=== PATIENT | male | born 1990 | race Caucasian/White ===

== ENCOUNTER 2020-01-23 08:13 | Outpatient (REF) | payer MEDICAID, SELFPAY ==
[2020-01-23 08:55] LABS: Hematocrit 52.9 % (42-52); Hemoglobin 16.7 g/dl (14.0-18.0)
[2020-01-23 09:21] LABS: Cholesterol 98 mg/dL; HDL Cholesterol 45 mg/dL; LDL Cholesterol Calculated 45 mg/dl; Triglycerides 42 mg/dL
[2020-01-25 02:22] LABS: Sex Hormone Binding Globulin 8 nmol/L (10-50)
[2020-01-28 07:52] LABS: Testosterone, Free 206.6 pg/mL (35.0-155.0); Testosterone, Total 606 ng/dL (250-1100)
[2020-01-28 09:22] LABS: Testosterone-Albumin 4.2 g/dL (3.6-5.1); Testosterone-Bioavailable 392.9 ng/dL (110.0-575.0); Testosterone-SHBG 9 nmol/L (10-50); Testosterone-Total 608 ng/dL (250-1100)
[2020-01-28 17:01] LABS: Estrogen 302.8 pg/mL (60-190)
[2020-01-31 22:31] LABS: Estradiol Free 1.48 pg/mL; Estradiol, Ultrasensitive 51 pg/mL
== END 2020-01-23 08:14 | disposition home or self-care (01) ==
LOC: HO.LAB 08:13
PROVIDERS: PCP Family Medicine; Visit Provider Internal Medicine Endocrinology, Diabetes & Metabolism
DX: F64.0 Transsexualism (principal)
CPT/HCPCS: 36415; 80061; 82670; 82672; 84270; 84402; 84403; 85014; 85018

== ENCOUNTER → 2020-01-30 08:40 | Outpatient (BNVA) | payer MEDICAID, SELFPAY | PROVIDERS: PCP Family Medicine; Referring Provider Family Medicine; Visit Provider Internal Medicine Endocrinology, Diabetes & Metabolism | DX: F64.0 Transsexualism (principal); Z88.0 Allergy status to penicillin; Z90.13 Acquired absence of bilateral breasts and nipples; Z79.890 Hormone replacement therapy; Z79.899 Other long term (current) drug therapy | CPT/HCPCS: 99212 ==

== ENCOUNTER 2020-06-29 09:21 | Outpatient (REF) | payer MEDICAID, SELFPAY ==
[2020-06-29 09:50] LABS: Hematocrit 53.5 % (42-52); Hemoglobin 16.8 g/dl (14.0-18.0)
[2020-06-29 10:29] LABS: Cholesterol 98 mg/dL; HDL Cholesterol 46 mg/dL; LDL Cholesterol Calculated 45 mg/dl; Triglycerides 35 mg/dL
[2020-07-05 23:57] LABS: Estradiol Free 1.31 pg/mL; Estradiol, Ultrasensitive 50 pg/mL
[2020-07-06 11:06] LABS: Testosterone, Free 163.3 pg/mL (35.0-155.0); Testosterone, Total 633 ng/dL (250-1100)
[2020-07-06 12:16] LABS: Testosterone-Albumin 4.5 g/dL (3.6-5.1); Testosterone-Bioavailable 330.8 ng/dL (110.0-575.0); Testosterone-Free 160.9 pg/mL (46.0-224.0); Testosterone-SHBG 11 nmol/L (10-50); Testosterone-Total 558 ng/dL (250-1100)
== END 2020-06-29 09:22 | disposition home or self-care (01) ==
LOC: HO.LAB 09:21
PROVIDERS: PCP Family Medicine; Visit Provider Internal Medicine Endocrinology, Diabetes & Metabolism
DX: F64.0 Transsexualism (principal); Z79.899 Other long term (current) drug therapy
CPT/HCPCS: 36415; 80061; 82670; 82681; 84270; 84402; 84403; 85014; 85018

== ENCOUNTER → 2020-07-02 08:29 | Outpatient (BNVA) | payer MEDICAID, SELFPAY | PROVIDERS: PCP Family Medicine; Visit Provider Internal Medicine Endocrinology, Diabetes & Metabolism | DX: F64.0 Transsexualism (principal); Z79.899 Other long term (current) drug therapy | CPT/HCPCS: 99212 ==

== ENCOUNTER 2021-01-30 09:59 | Outpatient (REF) | payer MEDICAID, SELFPAY ==
[2021-01-30 10:45] LABS: Hemoglobin 16.1 g/dl (14.0-18.0)
[2021-01-30 11:19] LABS: Cholesterol 130 mg/dL; HDL Cholesterol 56 mg/dL; LDL Cholesterol Calculated 66 mg/dl; Triglycerides 42 mg/dL
[2021-01-31 18:01] LABS: Sex Hormone Binding Globulin 14 nmol/L (10-50)
[2021-02-03 16:21] LABS: Testosterone, Free 5.7 pg/mL (35.0-155.0); Testosterone, Total 30 ng/dL (250-1100)
[2021-02-04 12:51] LABS: Testosterone-Albumin 4.3 g/dL (3.6-5.1); Testosterone-Bioavailable 14.1 ng/dL (110.0-575.0); Testosterone-Free 7.1 pg/mL (46.0-224.0); Testosterone-SHBG 15 nmol/L (10-50); Testosterone-Total 35 ng/dL (250-1100)
[2021-02-13 21:07] LABS: Estradiol Free 1.29 pg/mL; Estradiol, Ultrasensitive 46 pg/mL
== END 2021-01-30 10:00 | disposition home or self-care (01) ==
LOC: HO.LAB 09:59
PROVIDERS: Visit Provider Internal Medicine Endocrinology, Diabetes & Metabolism
DX: F64.0 Transsexualism (principal); Z79.899 Other long term (current) drug therapy
CPT/HCPCS: 36415; 80061; 82670; 82681; 84270; 84402; 84403; 85014; 85018

== ENCOUNTER → 2021-02-13 10:16 | Outpatient (BNVA) | payer MEDICAID, SELFPAY | PROVIDERS: PCP Family Medicine; Visit Provider Internal Medicine | DX: F64.0 Transsexualism (principal); Z79.899 Other long term (current) drug therapy | CPT/HCPCS: 99212 ==

== ENCOUNTER 2023-01-20 16:03 | Outpatient (REF) | payer MEDICAID, SELFPAY ==
[2023-01-20 17:20] LABS: MANUAL DIFF FLAG NO
[2023-01-20 17:37] LABS: Estimated Average Glucose 108 mg/dL; Hemoglobin A1c % 5.4 % (<6.0)
[2023-01-20 17:38] LABS: Alanine Aminotransferase 10 U/L (0-40); Albumin Level 4.8 g/dL (3.5-5.0); Alkaline Phosphatase 79 U/L (39-117); Aspartate Amino Transferase 23 U/L (5-37); Bilirubin Direct 0.2 mg/dL (0.0-0.5); Bilirubin Total 0.3 mg/dL (0.0-1.0); Cholesterol 151 mg/dL (<200); HDL Cholesterol 63 mg/dL (>40); LDL Cholesterol Calculated 78 mg/dL (<100); Total Protein 8.1 g/dL (6.5-8.0); Triglycerides 50 mg/dL (<150)
[2023-01-20 17:40] LABS: Basophils Percent Auto 0.2 % (0-2); Eosinophils Percent Auto 0.3 % (0-4); Hemoglobin 16.5 g/dl (14.0-18.0); Imm Gran Abs Auto 0.04 X10*3/uL (0.00-0.03); Imm Gran Pct Auto 0.4 % (0.0-0.4); Lymphocytes Absolute Auto 2.3 X10*3/uL (1.2-4.9); Lymphocytes Percent Auto 23.9 % (20-40); Mean Corpuscular HGB Conc 31.7 g/dl (31.0-36.0); Mean Corpuscular Hemoglobin 26.3 pg (27.0-33.0); Mean Corpuscular Volume 82.8 fL (80.0-98.0); Mean Platelet Volume 12.1 fL (9.4-12.4); Monocytes Absolute Auto 0.8 X10*3/uL (0.1-1.2); Monocytes Percent Auto 8.7 % (2-11); Neutrophils Absolute Auto 6.3 x10*3/uL (2.0-8.3); Neutrophils Percent Auto 66.5 % (45-73); Platelet Count 179 X10*3/uL (160-400); Red Blood Count 6.28 X10*6/uL (4.60-5.80); Red Cell Distribution Width 13.7 % (11.0-16.0); White Blood Count 9.4 X10*3/uL (4.8-10.8)
[2023-01-21 04:20] LABS: HIV AB/AG Nonreactive (Nonreactive); HIV Num 1 0.04 S/CO (0.00-0.99); ~HepC Num1 0.42 S/CO (0.00-0.79); ~Hepatitis C Antibody Nonreactive (Nonreactive)
[2023-01-21 04:55] LABS: CT PCR NOT DETECTED (Not Detect.); NG PCR NOT DETECTED (Not Detect.)
[2023-01-24 13:44] LABS: Testosterone, Total 84 ng/dL (250-1100)
[2023-01-27 10:59] LABS: RPR Rapid Plasma Reagin NON-REACTIVE (NON-REACTIVE)
== END 2023-01-20 16:04 | disposition home or self-care (01) ==
LOC: HO.HHCL 16:03
PROVIDERS: Visit Provider Family Medicine
DX: F64.0 Transsexualism (principal); Z11.3 Encounter for screening for infections with a predominantly sexual mode of transmission
CPT/HCPCS: 0353U; 80061; 80076; 83036; 84403; 85025; 86592; 86803; 87389

== ENCOUNTER 2023-04-23 10:53 | Outpatient (REF) | payer MEDICAID, SELFPAY ==
[2023-04-23 13:03] LABS: Basophils Percent Auto 0.3 % (0-2); Eosinophils Percent Auto 0.3 % (0-4); Hematocrit 47.4 % (37.0-47.0); Hemoglobin 15.2 g/dl (12.0-16.0); Imm Gran Abs Auto 0.02 X10*3/uL (0.00-0.03); Imm Gran Pct Auto 0.3 % (0.0-0.4); Lymphocytes Absolute Auto 1.8 X10*3/uL (1.2-4.9); Lymphocytes Percent Auto 29.6 % (20-40); MANUAL DIFF FLAG NO; Mean Corpuscular HGB Conc 32.1 g/dl (31.0-35.0); Mean Corpuscular Hemoglobin 26.7 pg (27.0-33.0); Mean Corpuscular Volume 83.2 fL (80.0-98.0); Monocytes Absolute Auto 0.5 X10*3/uL (0.1-1.2); Monocytes Percent Auto 7.8 % (2-11); Neutrophils Absolute Auto 3.7 x10*3/uL (2.0-8.3); Neutrophils Percent Auto 61.7 % (45-73); Platelet Count 201 X10*3/uL (160-400); Red Cell Distribution Width 12.7 % (11.0-16.0)
== END 2023-04-23 10:54 | disposition home or self-care (01) ==
LOC: HO.HHCL 10:53
DX: Z01.818 Encounter for other preprocedural examination (principal)
CPT/HCPCS: 36415; 85025

== ENCOUNTER 2023-06-28 10:26 | Emergency (ER) | payer MEDICAID, SELFPAY ==
--- NOTE | ~2023-06-28 | CT_ITS ---
EXAMINATION: CT ABDOMEN AND PELVIS WITH CONTRAST CLINICAL INFORMATION: Abdominal pain with possible hematoma status post hysterectomy COMPARISON: None available. TECHNIQUE: Multidetector volumetric images were obtained from the superior aspect of the liver through the pubic symphysis following administration 85 mL of Omnipaque 350 intravenous contrast. Sagittal and coronal reformatted images were obtained on the technologist's workstation. Oral contrast: No This CT examination was performed using dose optimization techniques as appropriate, variously including the following: *Automated exposure control *Adjustment of mA and/or kV according to patient size (this includes techniques or standardized protocols for targeted exams where dose is matched to indication/reason for exam; i.e. extremities or head) *Use of iterative reconstruction technique DLP: 430 mGy-cm FINDINGS: LUNG BASES: The visualized lung bases are unremarkable. LIVER, GALLBLADDER, AND BILIARY TREE: The liver is enlarged measuring 18.5 cm and demonstrates decreased attenuation suggesting hepatic steatosis. No focal hepatic lesion or biliary ductal dilatation is present. The gallbladder is unremarkable with no evidence of radiopaque gallstones, gallbladder wall thickening, or obvious pericholecystic inflammatory changes. PANCREAS: Unremarkable. SPLEEN: Unremarkable. ADRENAL GLANDS: Unremarkable. KIDNEYS AND URETERS: The kidneys are normal in size, shape, and attenuation. No hydronephrosis, hydroureter, or calculi seen. No perinephric stranding. BLADDER: Air is present in the bladder. Please correlate with history of catheterization GASTROINTESTINAL TRACT: Moderate stool is present throughout the colon. There are some scattered colonic diverticula without evidence of diverticulitis. The small and large bowel are otherwise unremarkable. The appendix is unremarkable. ABDOMINAL WALL: No significant hernia is appreciated. LYMPH NODES: Normal. VASCULAR: Unremarkable. PELVIC VISCERA: Status post hysterectomy. Some small foci of air are present in the peritoneal cavity in the pelvis. No gross free intraperitoneal air is seen. A tiny amount of fluid is seen in the presacral space and cul-de-sac. No evidence of a hematoma OSSEOUS STRUCTURES: Unremarkable. CT/CT abdomen pelvis w IV con IMPRESSION: 1. No evidence of a pelvic hematoma status post hysterectomy. 2. Small foci of air are present in the peritoneal cavity in the pelvis. 3. Enlarged fatty liver. 4. Air is present in the bladder. Please correlate with history of catheterization. 5. Other incidental findings as described above. Fleischner guidelines were followed.
[2023-06-28 10:40] VITALS: BP 127/78; PULSE 84; RESP 20; TEMP 36.9; O2SAT 96; BMI 24.6
[2023-06-28 11:05] LABS: MANUAL DIFF FLAG NO
[2023-06-28 11:06] LABS: Basophils Percent Auto 0.3 % (0-2); Eosinophils Percent Auto 0.3 % (0-4); Hemoglobin 15.1 g/dl (12.0-16.0); Imm Gran Abs Auto 0.11 X10*3/uL (0.00-0.03); Imm Gran Pct Auto 1.1 % (0.0-0.4); Lymphocytes Absolute Auto 1.9 X10*3/uL (1.2-4.9); Lymphocytes Percent Auto 19.6 % (20-40); Mean Corpuscular HGB Conc 32.8 g/dl (31.0-35.0); Mean Corpuscular Hemoglobin 26.7 pg (27.0-33.0); Mean Corpuscular Volume 81.3 fL (80.0-98.0); Mean Platelet Volume 10.6 fL (9.4-12.3); Monocytes Absolute Auto 0.7 X10*3/uL (0.1-1.2); Monocytes Percent Auto 7.2 % (2-11); Neutrophils Percent Auto 71.5 % (45-73); Platelet Count 190 X10*3/uL (160-400); Red Blood Count 5.66 X10*6/uL (4.20-5.50); Red Cell Distribution Width 13.2 % (11.0-16.0); White Blood Count 9.8 X10*3/uL (4.8-10.8)
[2023-06-28 11:08] VITALS: BP 121/82; PULSE 88; RESP 16; TEMP 37.3; O2SAT 99
--- NOTE | 2023-06-28 11:12 | PC.NURSE ---
Pt presents to ED from home, pt reports they had a hysterectomy last Wednesday06/23/23 at [facility] in [place]. Pt presents today with increased bruising around surgical site on LLQ of ABD. Pt denies any pain or distention to abdomen. Pt denies any SOB, CP, fevers, cough, N/V/D. Pt is alert and oriented, breathing even and unlabored, skin WNL. Bruising noted to LLQ of ABD, no distention noted. VSS, pt in no acute distress, reports I feel totally fine .
--- NOTE | 2023-06-28 11:15 | ED_ITS ---
HPI - General Adult General Chief complaint: Skin/Abscess/Foreign Body Stated complaint: Infected surgical site? Time Seen by Provider: 06/28/23 11:15 Source: patient Mode of arrival: ambulatory Limitations: no limitations History of Present Illness HPI narrative: Patient is a 32 year old assigned female at , now male, with a history of recent hysterectomy presenting to the emergency department today with left lower abdominal bruising a few days post hysterectomy at [facility]. Patient states that he recently got a hysterectomy and is concerned about the amount of bruising present around the surgical site. Patient denies any dizziness, lightheadedness, abdominal pain, nausea, vomiting, fever, chills, blurry vision, double vision, loss of vision, chest pain, difficulty breathing, shortness of breath, back pain, night sweats, pain with urination, increased urinary frequency, increased urinary urgency, blood in his urine or stool, syncope or a near syncopal episode, recent trauma or falls, bowel incontinence, bladder incontinence, bowel retention, bladder retention, or any other complaints at this time. Onset (ago): day(s) Location: abdomen Relieving factors: none Exacerbating factors: none Associated symptoms: denies other symptoms Treatments prior to arrival: none Related Data Previous Rx's Medication Instructions Recorded insulin syringe-needle U-100 1 mL #5 ea 07/02/20 25 gauge x 5/8 (BD Insulin Syringe) syringe with needle, safety 3 mL #5 ea 07/02/20 22 gauge x 1 1/2 (BD Safety-[place] Detachable Needle) testosterone cypionate 200 mg/mL 40 mg (0.2 mL) IM QWEEK 30 days #1 02/13/21 intramuscular oil mL arnica 20 % topical tincture See Rx Instructions .Route 06/28/23 .COMPLEX #120 mL Allergies Allergy/AdvReac Type Severity Reaction Status Date / Time penicillin Allergy Unknown Unknown Uncoded 02/13/21 11:04 Review of Systems 2 Constitutional: Constitutional: Reports no additional constitutional complaints, Denies chills, Denies fever(s) and Denies night sweats Eyes: Eyes: Reports no additional eye complaints, Denies blurry vision, Denies change in vision, Denies diplopia, Denies eye discharge, Denies loss of vision and Denies eye pain ENT: Denies dizziness Cardiovascular: Cardiovascular: Reports no additional cardiovascular complaints, Denies chest pain, Denies lightheadedness, Denies Loss of Consciousness and Denies dyspnea Respiratory: Respiratory: Reports no additional respiratory complaints and Denies dyspnea Gastrointestinal: Gastrointestinal: Reports no additional gastrointestinal complaints, Denies abdominal pain, Denies melena, Denies hematochezia, Denies change in bowel habits and Denies change in stool character Comments: abdominal bruising around surgical site Genitourinary: Genitourinary: Denies hematuria, Denies urinary frequency, Denies dysuria, Denies urinary incontinence, Denies urinary hesitancy and Denies urinary urgency Musculoskeletal: Musculoskeletal: Reports no additional musculoskeletal complaints, Denies numbness and Denies tingling Neurologic: Denies dizziness, Denies loss of vision, Denies numbness and Denies tingling Psychiatric: Psychiatric: Reports no additional psychiatric complaints Endocrine: Endocrine: Reports no additional endocrine complaints Hematologic/Lymphatic: Hematologic/Lymphatic: Reports no additional hematologic/lymphatic complaints Allergic/Immunologic: Allergic/Immunologic: Reports no additional allergic/immunologic complaints PMFSH Past Medical History Attestation statement: The following information was validated with the patient. 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 Mother No problems noted. Social History Social History Alcohol intake: never Patient Tobacco Use Status: Never used Tobacco Smoked in Last 30 Days: No Use of substances other than those prescribed or required for medical reasons: No Advance Directives: No Advance Directives Information Provided: Yes Physical Exam ED Vital Signs: Vital Signs - 24 hr 06/28/23 10:40 06/28/23 11:08 Temperature 98.4 F 99.1 F Pulse Rate 84 88 Respiratory Rate 20 16 Blood Pressure 127/78 121/82 Pulse Oximetry 96 99 Oxygen Delivery Method Room Air Room Air BMI result Body Mass Index 24.6 Const General: cooperative, no acute distress, alert and awake Nutritional Appearance: well nourished Orientation/consciousness: patient oriented x3 Limitations: no limitations HENMT Head: Yes normal to inspection and Yes atraumatic Ears: hearing grossly normal bilaterally and external ears normal General nose exam: Normal external nose present, no nasal discharge noted and no epistaxis Face and sinus: Yes normal facial exam, No abrasion and No laceration Mouth: Normal oral and palatal mucosa present, no drooling and no muffled voice Eyes General: appearance normal, both eyes and all related structures Periorbital: periorbital findings normal Eyelids: Yes eyelids normal Conjunctivae: conjunctivae normal Pupils: Equal, round and reactive pupils present EOM: EOMs intact bilaterally Neck Neck: Yes normal visual inspection, Yes full ROM and Yes no lymphadenopathy Chest Chest palpation & inspection: normal inspection of the chest Resp Effort & Inspection: normal respiratory effort and able to speak in complete sentences GI Other: bruising present around the surgical sites on the abdomen in various stages of healing, no evidence of infection Neuro General: patient oriented x3 and moves all extremities Cranial nerves: Yes Equal, round and reactive pupils present Cognition (Neuro): normal cognition Motor exam (neuro): 5/5 motor strength present throughout Sensory Exam: Normal double simultaneous stimulation for sensation Coordination: [id number] test normal Extrem General: Yes normal to inspection, Yes full ROM and Yes capillary refill normal Psych Appearance: grossly normal Mental Status: mental status grossly normal Affect: normal affect Attitude: cooperative Thought process: Normal thought process present Thought content: Normal thought content present Insight: Good insight present (Psych) Medications Administered Discontinued Medications Generic Name Dose Route Start Last Admin Trade Name Freq PRN Reason Stop Dose Admin Iohexol 100 ml 06/28/23 12:54 06/28/23 12:55 Iohexol 350 Mg/Ml 100 Ml Infus..Btl IV 06/28/23 12:55 85 ml ONCE ONE Administration Medical Decision Making Medical Decision Making [facility] Narrative: Patient is a 32 year old assigned female at , now male, with a history of recent hysterectomy presenting to the emergency department today with concerns over bruising around the surgical sites. Patient's physical exam showed bruising around the laproscopic surgical sites with no erythema or concerning signs of infection. Patient's bruising appears appropriate for the recent surgical procedure. Patient's abdomen is soft, non-tender. Patient's blood work was unremarkable. Patient's abdomen/pelvis CT showed a mild amount of stool, air in bladder which is consistent with recent catheterization, and no evidence of hematoma / hemorrhage. I explained my physical exam findings as well as all test results to the patient. I answered all questions asked by the patient. Patient confirmed he was recently catheterized for the procedure but isn't presently. Patient requested a cream for bruising. I stressed the importance of the patient taking his medication as prescribed. I stressed the importance of the patient following up with his primary care provider and his surgeon. I stressed the importance of the patient returning to the emergency department immediately if his symptoms were to worsen or if he were to develop any dizziness, shortness of breath, difficulty breathing, chest pain, blurry vision, loss of vision, nausea, vomiting, abdominal pain, fever, chills, back pain, or any other complaints. Patient verbalized agreement and understanding with this treatment plan and discharge. Differential Diagnosis Differential Diagnoses: The differential diagnosis associated with the presentation includes Post-operative bruising Post-operative examination Admission/Observation Consideration of admission/observation: Escalation of care including admission/observation considered Patient would have been admitted to the hospital had his work up had any findings where hospital admission was appropriate and his clinical presentation warranted hospital admission. Lab Data [facility] Lab Attestation statement: I reviewed the patient's lab results. My interpretation of these results are in the [facility] Rationale portion of this note. 06/28/23 10:54 06/28/23 10:54 Labs: Lab Results 06/28/23 Range/Units 10:54 WBC 9.8 (4.8-10.8) X10*3/uL RBC 5.66 H (4.20-5.50) X10*6/uL Hgb 15.1 (12.0-16.0) g/dl Hct 46.0 (37.0-47.0) % MCV 81.3 (80.0-98.0) fL MCH 26.7 L (27.0-33.0) pg MCHC 32.8 (31.0-35.0) g/dl RDW 13.2 (11.0-16.0) % Plt Count 190 (160-400) X10*3/uL MPV 10.6 (9.4-12.3) fL Immature Gran % (Auto) 1.1 H (0.0-0.4) % Neut % (Auto) 71.5 (45-73) % Lymph % (Auto) 19.6 L (20-40) % [place] % (Auto) 7.2 (2-11) % Eos % (Auto) 0.3 (0-4) % Baso % (Auto) 0.3 (0-2) % Lymph # (Auto) 1.9 (1.2-4.9) X10*3/uL [place] # (Auto) 0.7 (0.1-1.2) X10*3/uL Eos # (Auto) 0.0 (0.0-0.4) X10*3/uL Baso # (Auto) 0.0 (0.0-0.2) X10*3/uL Abs Immat Gran (auto) 0.11 H (0.00-0.03) X10*3/uL Absolute Neuts (auto) 7.0 (2.0-8.3) x10*3/uL Absolute Nucleated RBC 0.000 (0.0-0.012) X10*3/uL Nucleated RBC % (auto) 0.0 (0.0-0.2) /100WBC Sodium 140 (135-145) mmol/L Potassium 4.2 (3.3-5.1) mmol/L Chloride 106 (96-108) mmol/L Carbon Dioxide 28 (22-29) mmol/L Anion Gap 10 L (12-20) BUN 9 (9-16) mg/dL Creatinine 0.75 (0.5-1.4) mg/dL Estim Creat Clear Calc 96.0 Estimated GFR > 60 Random Glucose 101 (60-115) mg/dL Calcium 9.5 (8.4-10.2) mg/dL Total Bilirubin 0.4 (0.0-1.0) mg/dL Direct Bilirubin 0.1 (0.0-0.5) mg/dL AST 17 (5-31) U/L ALT 12 (0-31) U/L Alkaline Phosphatase 69 (39-117) U/L Total Protein 7.4 (6.5-8.0) g/dL Albumin 4.2 (3.5-5.0) g/dL Independent Interpretation I performed an independent interpretation of an: CT Scan Interpretation: My interpretation is in agreement with the radiologist's impression of this imaging study. - EXAMINATION: CT ABDOMEN AND PELVIS WITH CONTRAST CLINICAL INFORMATION: Abdominal pain with possible hematoma status post hysterectomy COMPARISON: None available. TECHNIQUE: Multidetector volumetric images were obtained from the superior aspect of the liver through the pubic symphysis following administration 85 mL of Omnipaque 350 intravenous contrast. Sagittal and coronal reformatted images were obtained on the technologist's workstation. Oral contrast: No This CT examination was performed using dose optimization techniques as appropriate, variously including the following: *Automated exposure control *Adjustment of mA and/or kV according to patient size (this includes techniques or standardized protocols for targeted exams where dose is matched to indication/reason for exam; i.e. extremities or head) *Use of iterative reconstruction technique DLP: 430 mGy-cm FINDINGS: LUNG BASES: The visualized lung bases are unremarkable. LIVER, GALLBLADDER, AND BILIARY TREE: The liver is enlarged measuring 18.5 cm and demonstrates decreased attenuation suggesting hepatic steatosis. No focal hepatic lesion or biliary ductal dilatation is present. The gallbladder is unremarkable with no evidence of radiopaque gallstones, gallbladder wall thickening, or obvious pericholecystic inflammatory changes. PANCREAS: Unremarkable. SPLEEN: Unremarkable. ADRENAL GLANDS: Unremarkable. KIDNEYS AND URETERS: The kidneys are normal in size, shape, and attenuation. No hydronephrosis, hydroureter, or calculi seen. No perinephric stranding. BLADDER: Air is present in the bladder. Please correlate with history of catheterization GASTROINTESTINAL TRACT: Moderate stool is present throughout the colon. There are some scattered colonic diverticula without evidence of diverticulitis. The small and large bowel are otherwise unremarkable. The appendix is unremarkable. ABDOMINAL WALL: No significant hernia is appreciated. LYMPH NODES: Normal. VASCULAR: Unremarkable. PELVIC VISCERA: Status post hysterectomy. Some small foci of air are present in the peritoneal cavity in the pelvis. No gross free intraperitoneal air is seen. A tiny amount of fluid is seen in the presacral space and cul-de-sac. No evidence of a hematoma OSSEOUS STRUCTURES: Unremarkable. CT/CT abdomen pelvis w IV con IMPRESSION: 1. No evidence of a pelvic hematoma status post hysterectomy. 2. Small foci of air are present in the peritoneal cavity in the pelvis. 3. Enlarged fatty liver. 4. Air is present in the bladder. Please correlate with history of catheterization. 5. Other incidental findings as described above. Fleischner guidelines were followed. Dictated By: Clifton Clark MD Signed By: Electronically signed by Clifton Clark MD 06/28/23 1222 Radiology Impression Discussion of test interpretation with radiology: I have reviewed the radiologist's reading. Discharge Plan Discharge Clinical Impression: Postoperative ecchymosis Patient Disposition: Home, Self-Care Instructions: Ecchymosis (ED) Additional Instructions: Follow up with your primary care provider and your surgeon. Return to the emergency department immediately if your symptoms worsen or if you develop any dizziness, shortness of breath, difficulty breathing, chest pain, blurry vision, loss of vision, nausea, vomiting, abdominal pain, fever, chills, back pain, or any other complaints. Prescriptions: New arnica 20 % tincture See Rx Instructions .ROUTE .COMPLEX Qty: 120 0RF Rx Instructions: Apply to affected area. No Action (DME) BD Insulin Syringe 1 mL 25 gauge x 5/8 syringe See Rx Instructions .ROUTE .MEDSUPPLY Qty: 5 7RF Rx Instructions: once a week (DME) BD Safety-[facility] Detachable Needl 3 mL 22 gauge x 1 1/2 syringe See Rx Instructions .ROUTE .MEDSUPPLY Qty: 5 7RF Rx Instructions: Once a week testosterone cypionate 200 mg/mL oil 40 mg IM QWEEK 30 Days Qty: 1 2RF Referrals: Abiola Hassan MD [Primary Care Provider] - Print Language: Pashto
[2023-06-28 11:19] LABS: Anion Gap 10 (12-20); Blood Urea Nitrogen 9 mg/dL (9-16); Calcium 9.5 mg/dL (8.4-10.2); Carbon Dioxide 28 mmol/L (22-29); Chloride 106 mmol/L (96-108); Estimated Glomerular Filt Rate > 60; Glucose Random 101 mg/dL (60-115); Potassium 4.2 mmol/L (3.3-5.1); Sodium 140 mmol/L (135-145)
[2023-06-28 11:39] LABS: Alanine Aminotransferase 12 U/L (0-31); Albumin Level 4.2 g/dL (3.5-5.0); Alkaline Phosphatase 69 U/L (39-117); Aspartate Amino Transferase 17 U/L (5-31); Bilirubin Direct 0.1 mg/dL (0.0-0.5); Bilirubin Total 0.4 mg/dL (0.0-1.0); Total Protein 7.4 g/dL (6.5-8.0)
[2023-06-28] MEDS: iohexoL 350 MG/ML 100 ML INFUS..BTL IV (12:55)
[2023-06-28 15:39] VITALS: BP 128/83; PULSE 79; RESP 16; RESP 18; TEMP 36.4; O2SAT 99
== END 2023-06-28 15:40 | disposition home or self-care (01) ==
PROVIDERS: Physician Assistant Medical; Emergency Provider Emergency Medicine; PCP Family Medicine
DX: L76.32 Postprocedural hematoma of skin and subcutaneous tissue following other procedure (principal); R10.2 Pelvic and perineal pain; Y83.9 Surgical procedure, unspecified as the cause of abnormal reaction of the patient, or of later complication, without mention of misadventure at the time of the procedure; Y81.3 Surgical instruments, materials and general- and plastic-surgery devices (including sutures) associated with adverse incidents
CPT/HCPCS: 36415; 74177; 80048; 80076; 85025; 99284; Q9967

== ENCOUNTER 2023-08-06 10:51 | Outpatient (REF) | payer MEDICAID, SELFPAY ==
[2023-08-06 11:44] LABS: Hematocrit 46.1 % (37.0-47.0); Hemoglobin 14.6 g/dl (12.0-16.0); Mean Corpuscular HGB Conc 31.7 g/dl (31.0-35.0); Mean Corpuscular Volume 85.2 fL (80.0-98.0); Mean Platelet Volume 10.9 fL (9.4-12.3); Platelet Count 195 X10*3/uL (160-400); Red Blood Count 5.41 X10*6/uL (4.20-5.50); Red Cell Distribution Width 13.1 % (11.0-16.0); White Blood Count 6.7 X10*3/uL (4.8-10.8)
[2023-08-06 12:27] LABS: Alanine Aminotransferase 14 U/L (0-31); Albumin Level 4.3 g/dL (3.5-5.0); Alkaline Phosphatase 88 U/L (39-117); Aspartate Amino Transferase 22 U/L (5-31); Bilirubin Direct < 0.2 mg/dL (0.0-0.5); Bilirubin Total 0.2 mg/dL (0.0-1.0); Total Protein 7.2 g/dL (6.5-8.0)
[2023-08-11 12:34] LABS: Testosterone, Total 135 ng/dL (2-45)
== END 2023-08-06 10:52 | disposition home or self-care (01) ==
LOC: HO.HHCL 10:51
PROVIDERS: Visit Provider Family Medicine
DX: F64.0 Transsexualism (principal)
CPT/HCPCS: 36415; 80076; 84403; 85027

== ENCOUNTER 2023-11-13 19:30 | Emergency (ER) | payer MEDICAID, SELFPAY ==
--- NOTE | ~2023-11-13 | XR_ITS ---
EXAMINATION: XR ANKLE, LEFT XR FOOT, LEFT CLINICAL INFORMATION: Injury. Pain. COMPARISON: None TECHNIQUE: AP, lateral, and mortise views of the left ankle and AP, lateral, and oblique views of the left foot. FINDINGS: LEFT ANKLE: No fracture. Alignment is anatomic. Ankle mortise is symmetric. Joint spaces are maintained. No ankle joint effusion. Soft tissues are normal. LEFT FOOT: No fracture. Alignment is anatomic. No erosions. Joint spaces are maintained. Soft tissues are normal. Small enthesopathic spurs are present at the Achilles tendon insertion and plantar fascial origin on the calcaneus. XR/XR ankle LT 2V IMPRESSION: No acute fracture or malalignment in the left ankle and foot.
--- NOTE | ~2023-11-13 | XR_ITS ---
EXAMINATION: XR ANKLE, LEFT XR FOOT, LEFT CLINICAL INFORMATION: Injury. Pain. COMPARISON: None TECHNIQUE: AP, lateral, and mortise views of the left ankle and AP, lateral, and oblique views of the left foot. FINDINGS: LEFT ANKLE: No fracture. Alignment is anatomic. Ankle mortise is symmetric. Joint spaces are maintained. No ankle joint effusion. Soft tissues are normal. LEFT FOOT: No fracture. Alignment is anatomic. No erosions. Joint spaces are maintained. Soft tissues are normal. Small enthesopathic spurs are present at the Achilles tendon insertion and plantar fascial origin on the calcaneus. XR/XR foot LT 2V IMPRESSION: No acute fracture or malalignment in the left ankle and foot.
[2023-11-13 19:30] VITALS: BP 135/95; PULSE 87; RESP 18; TEMP 36.6; O2SAT 100; BMI 27.3
--- NOTE | 2023-11-13 19:35 | ED.LOWEXIN ---
HPI - Extremity Injury (Lower) General Chief Complaint: Extremity Injury, Lower Stated Complaint: left foot inj Time Seen by Provider: 11/13/23 22:31 History of Present Illness ED Provider: Jack CURRY Narrative: The patient is a 33-year-old who injured there left foot and ankle going down stairs. Patient says they twisted their foot or ankle then had a lot of pain. They came to the emergency room for evaluation of this pain. There was no other injury. Related Data Previous Rx's ?Medication ?Instructions ?Recorded insulin syringe-needle U-100 1 mL #5 ea 07/02/20 25 gauge x 5/8 (BD Insulin Syringe) syringe with needle, safety 3 mL #5 ea 07/02/20 22 gauge x 1 1/2 (BD Safety-[facility] Detachable Needle) testosterone cypionate 200 mg/mL 40 mg (0.2 mL) IM QWEEK 30 days #1 02/13/21 intramuscular oil mL arnica 20 % topical tincture See Rx Instructions .Route 06/28/23 .COMPLEX #120 mL acetaminophen 500 mg capsule 1,000 mg (2 x 500 mg) PO Q8H PRN 11/13/23 pain #20 caps ibuprofen 600 mg tablet 600 mg PO Q6H PRN pain #14 tabs 11/13/23 Allergies Allergy/AdvReac Type Severity Reaction Status Date / Time penicillin Allergy Unknown Unknown Uncoded 11/13/23 19:33 Review of Systems Review of Systems: Yes all other systems are reviewed and are negative PMFSH Past Medical History Medical History 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 Mother No problems noted. Social History Social History Alcohol intake: never Patient Tobacco Use Status: Never used Tobacco Smoked in Last 30 Days: No Use of substances other than those prescribed or required for medical reasons: No Advance Directives: No Advance Directives Information Provided: No Do you have a plan to hurt others: No Plan Patient : No Physical Exam Vital Signs: Vital Signs: Last Vital Signs Temp 98.0 F 11/13/23 23:05 Pulse 84 11/13/23 23:05 Resp 18 11/13/23 23:05 BP 120/98 H 11/13/23 23:05 Pulse Ox 99 11/13/23 23:05 O2 Del Method Room Air 11/13/23 23:05 BMI result Body Mass Index 27.3 Const: Other: The patient is awake, alert, pleasant, cooperative. The patient does not appear acutely ill. HEENT: Head: Yes normal to inspection Face and sinus: Yes normal facial exam Mouth: moist mucous membranes Eyes: General: appearance normal, both eyes and all related structures Neck: Neck: Yes normal visual inspection and Yes full ROM Resp: Effort & Inspection: normal respiratory effort Skin: Other: There is some soft tissue swelling to the dorsal midfoot. There is some swelling to the lateral malleolus. Skin is intact. Neuro: Other: Intact sensation in the feet and toes. Extrem: Other: There is some soft tissue swelling to the dorsal midfoot of the left foot and over the lateral malleolus. There is diffuse tenderness of both the dorsal midfoot and the lateral malleolus. No particular tenderness of swelling at the proximal 5th metatarsal. No gross deformity other than the soft tissue swelling of the skin. Decreased range of motion of the ankle. Course Course Course Narrative: This is a rapid medical exam. Defer additional HPI, ROS, PE to primary provider. 33 yo patient here with left ankle/foot pain after injury which occurred today. Will check x-rays -Bunny Villarreal APRN Medications Administered Discontinued Medications Generic Name Dose Route Start Last Admin Trade Name Robb PRN Reason Stop Dose Admin Acetaminophen 975 mg 11/13/23 22:45 11/13/23 22:49 Acetaminophen 325 Mg Tablet PO 11/13/23 22:46 975 mg ONCE ONE Administration Ibuprofen 600 mg 11/13/23 22:45 11/13/23 22:49 Ibuprofen 600 Mg Tablet PO 11/13/23 22:46 600 mg ONCE ONE Administration Medical Decision Making Medical Decision Making MDM Narrative: The patient is a 33-year-old who injured the ankle going down stairs. This is a twisting type injury. I think the primary injury is at the ankle of the foot may be slightly involved as well. X-rays are negative. I think this is primarily a left ankle sprain. The patient will be given an Aircast and crutches and advised to keep the foot elevated. Ibuprofen and acetaminophen. Follow-up with PCP. Discharge Plan Discharge Clinical Impression: Left ankle sprain Patient Disposition: Home, Self-Care Instructions: Ankle Sprain (ED) Additional Instructions: I do not see a fracture on your x-rays. I believe you have a sprain of your left ankle. Please use the crutches to keep weight off your left foot. You should be nonweightbearing on your left foot for approximately 3 days. After that you may put some weight on the foot but only as much as is tolerable. This is called ?weight-bearing as tolerated. ? Use the crutches to help keep weight off the foot. Stay off your feet as much as you can. Keep your left foot elevated as often as you can keep it elevated. Apply ice to the left ankle and foot for 10-15 minutes several times a day. Always keep a dry cloth between your skin and an ice bag. Please follow up in a week or 2 with your regular doctor. Return to the emergency room if significantly worse. Prescriptions: New ibuprofen 600 mg tablet 600 mg PO Q6H PRN (Reason: pain) Qty: 14 0RF acetaminophen 500 mg capsule 1,000 mg PO Q8H PRN (Reason: pain) Qty: 20 0RF No Action arnica 20 % tincture See Rx Instructions .ROUTE .COMPLEX Qty: 120 0RF Rx Instructions: Apply to affected area. (DME) BD Insulin Syringe 1 mL 25 gauge x 5/8 syringe See Rx Instructions .ROUTE .MEDSUPPLY Qty: 5 7RF Rx Instructions: once a week (DME) BD Safety-[place] Detachable Needl 3 mL 22 gauge x 1 1/2 syringe See Rx Instructions .ROUTE .MEDSUPPLY Qty: 5 7RF Rx Instructions: Once a week testosterone cypionate 200 mg/mL oil 40 mg IM QWEEK 30 Days Qty: 1 2RF Referrals: Abiola Hassan MD [Primary Care Provider] - (left ankle sprain) Interventions: ED Discharge Assessment Last Done: 11/13/23 23:05 Discharge Date/Time: 11/13/23 23:07 Print Language: Turkish
[2023-11-13] MEDS: Ibuprofen 600 MG TABLET PO (22:49)
[2023-11-13] MEDS: Acetaminophen 325 MG TABLET 975 MG PO (22:49)
[2023-11-13 22:55] VITALS: BP 120/98; PULSE 84; RESP 18; TEMP 36.7; O2SAT 99
[2023-11-13 23:05] VITALS: BP 120/98; PULSE 84; RESP 18; TEMP 36.7; O2SAT 99
== END 2023-11-13 23:07 | disposition home or self-care (01) ==
PROVIDERS: Emergency Provider Emergency Medicine; PCP Family Medicine
DX: S93.402A Sprain of unspecified ligament of left ankle, initial encounter (principal); X50.1XXA Overexertion from prolonged static or awkward postures, initial encounter; Y93.89 Activity, other specified; Y92.9 Unspecified place or not applicable; Y99.9 Unspecified external cause status
CPT/HCPCS: 73600; 73620; 99283; 99284

== ENCOUNTER 2024-03-31 08:04 | Outpatient (REF) | payer MEDICAID, SELFPAY ==
[2024-03-31 11:23] LABS: Hematocrit 45.2 % (37.0-47.0); Hemoglobin 12.9 g/dl (12.0-16.0); Mean Corpuscular HGB Conc 28.5 g/dl (31.0-35.0); Mean Corpuscular Hemoglobin 19.2 pg (27.0-33.0); Mean Corpuscular Volume 67.3 fL (80.0-98.0); Platelet Count 228 X10*3/uL (160-400); Red Blood Count 6.72 X10*6/uL (4.20-5.50); Red Cell Distribution Width 23.5 % (11.0-16.0); White Blood Count 7.2 X10*3/uL (4.8-10.8)
[2024-03-31 12:09] LABS: Alanine Aminotransferase 18 U/L (0-31); Albumin Level 4.4 g/dL (3.5-5.0); Alkaline Phosphatase 84 U/L (39-117); Aspartate Amino Transferase 32 U/L (5-31); Bilirubin Direct 0.1 mg/dL (0.0-0.5); Bilirubin Total 0.3 mg/dL (0.0-1.0); Total Protein 7.6 g/dL (6.5-8.0)
[2024-04-05 15:58] LABS: Testosterone, Total 563 ng/dL (2-45)
== END 2024-03-31 08:05 | disposition home or self-care (01) ==
LOC: HO.HHCL 08:04
PROVIDERS: Visit Provider Family Medicine
DX: F64.0 Transsexualism (principal)
CPT/HCPCS: 36415; 80076; 84403; 85027

== ENCOUNTER 2024-10-16 12:17 | Outpatient (REF) | payer MEDICAID, SELFPAY ==
--- OUTSIDE RECORDS SUMMARY | 2024-10-16 13:07 | XMS_ITS | Clinical Summary ---
Author Organization [facility] ity Address [address] [place] [address] Care Team Providers Care Outcomes Specialist Name Role Phone Abiola Hassan MD Primary Care Provider [phone] Surgical History Surgery Date Site/Laterality Comments OTHER SURGICAL HISTORY PROCEDURE: DENIES PREVIOUS SURGERY Medical History Medical History Date Comments Patient denies medical problems DX:Patient denies medical problems Family History Medical History Relation Name Comments No Known Problems Father No Known Problems Mother Relation Name Status Comments Father Alive Mother Alive Social History Tobacco Use Types Packs/Day Years Used Date Smoking Tobacco: Never Smokeless Tobacco: Never Alcohol Use Standard Drinks/Week Comments Yes 0 (1 standard drink = 0.6 oz pur e alcohol) Sex and Gender Information Value Date Recorded Sex Assigned at Not on file Legal Sex Male 3:25 PM EDT Gender Identity Not on file Sexual Orientation Not on file Obstetrics History Plan of Treatment Health Maintenance Due Date Last Done Comments DTaP,Tdap,and Td Vaccines (1 - Tdap) 2008 Hepatitis B Vaccines (1 of 3 - 19+ 3-dose series) 2008 HIV Screening 02/25/2022 Hepatitis C Screening 02/25/2022 Social Influencers of Health Screening 02/25/2022 COVID-19 Vaccine (1 - 2023-2 5 season) 2023 Depression Screening 03/29/2024 Influenza Vaccine (#1) 2024 HIB Vaccines Aged Out No longer eligi ble based on patient's age to complete this topic HPV Vaccines Aged Out No longer eligi ble based on patient's age to complete this topic Hepatitis A Vaccines Aged Out No long er eligible based on patient's age to complete this topic IPV Vaccines Aged Out No longer eligi ble based on patient's age to complete this topic MMR Vaccines Aged Out No longer eligi ble based on patient's age to complete this topic Meningococcal ACWY Vaccine Aged Out N o longer eligible based on patient's age to complete this topic Meningococcal B Vaccine Aged Out No l onger eligible based on patient's age to complete this topic Pneumococcal Vaccine: Pediat rics (0 to 5 Years) and At-Risk Patients (6 to 49 Years) Aged Out No longer eligible b ased on patient's age to complete this topic RSV Immunization Patients Un danya 20 months Aged Out No longer eligible b ased on patient's age to complete this topic Varicella Vaccines Aged Out No longer eligible based on patient's age to complete this topic Care Teams Outcomes Specialist Relationship Specialty Start Date End Date Abiola Hassan MD [address] [place] [phone] PCP - General Internal Medicine 07/22/18
--- OUTSIDE RECORDS SUMMARY | 2024-10-16 13:07 | XMS_ITS | Encounter Summary ---
Author Organization [employer] Address [address] [place] [address] 7 [place] [address] Care Team Providers Care Professor Of Anthropology Name Role Phone Abiola Hassan MD Primary Care Provider +1- [phone] Hellen Walker OD Unavailable [phone] Encounter Details Date Type Department Care Team (Latest Contact Info) Description 12/13/2018 Abstract [facility] Dental, Provider, DDS Social History Tobacco Use Types Packs/Day Years Used Date Smoking Tobacco: Never Assessed Comments Unknown Sex and Gender Information Value Date Recorded Sex Assigned at Female 02/01/2023 11:12 AM EST Legal Sex Female 7:48 AM EDT Gender Identity Transgender Male 01/26/2022 10:3 4 AM EDT Sexual Orientation Something else 06/11/2022 10 :44 AM EDT documented as of this encounter Plan of Treatment Upcoming Encounters Date Type Department Care Team ( st Contact Info) Description 01/30/2025 3:00 PM EST Office Visit [facility] OPTOMETRY [address] [place] [address] Hellen Walker OD [address] [place] [address] documented as of this encounter Visit Diagnoses Not on filedocumented in this encounter Care Teams Professor Of Anthropology Relationship Specialty Start Date End Date Abiola Hassan MD [address] [place] [address] PCP - General Family Medicine 02/28/18 Hellen Walker OD [address] [place] [address] Optometry 05/29/24 Keith Kirkpatrick MD, MS Plastic and Reconstructive Surgery [address] [place] [address] 05/29/24 documented as of this encounter
[2024-10-16 13:13] LABS: Hematocrit 44.4 % (37.0-47.0); Hemoglobin 13.9 g/dl (12.0-16.0); Mean Corpuscular HGB Conc 31.3 g/dl (31.0-35.0); Mean Corpuscular Hemoglobin 24.3 pg (27.0-33.0); Mean Corpuscular Volume 77.5 fL (80.0-98.0); NRBC Abs Auto 0.000 X10*3/uL (0.0-0.012); NRBC Pct Auto 0.0 /100WBC (0.0-0.2); Platelet Count 172 X10*3/uL (160-400); Red Blood Count 5.73 X10*6/uL (4.20-5.50); White Blood Count 5.4 X10*3/uL (4.8-10.8)
[2024-10-16 13:36] LABS: Alanine Aminotransferase 23 U/L (0-31); Albumin Level 4.6 g/dL (3.5-5.0); Alkaline Phosphatase 111 U/L (39-117); Aspartate Amino Transferase 34 U/L (5-31); Cholesterol 151 mg/dL (<200); HDL Cholesterol 61 mg/dL (>40); Total Protein 7.2 g/dL (6.5-8.0); Triglycerides 81 mg/dL (<150)
== END 2024-10-16 12:18 | disposition home or self-care (01) ==
LOC: HO.HHCL 12:17
PROVIDERS: PCP Family Medicine; Visit Provider Family Medicine
DX: F64.0 Transsexualism (principal)
CPT/HCPCS: 36415; 80061; 80076; 84403; 85027

== ENCOUNTER 2025-02-02 08:37 | Outpatient (REF) | payer MEDICAID, SELFPAY ==
--- OUTSIDE RECORDS SUMMARY | 2025-01-30 15:00 | XMS_ITS | Encounter Summary ---
Author Organization [employer] Address [address] [facility] 7t [place] [address] Care Team Providers Care Redye Hand Name Role Phone [place], Abiola VEGA Primary Care Provider [phone]- [phone] Hellen Walker OD Unavailable Reason for Visit * Reason Comments Pathological myopia Encounter Details Date Type Department Care Team ([facility] st Contact Info) Description 01/30/2025 3:00 PM EST Office Visit [facility] OPTOMETRY [address] [place] [address] Hellen Walker, OD [address] [place] [address] Myopia of both eyes (Primary Dx); Posterior staphyloma, bilateral Social History Tobacco Use Types Packs/Day Years Used Date Smoking Tobacco: Never Smokeless Tobacco: Never Alcohol Answer Date Recorded How often do you have a drink containing alcohol ? 2 03/03/2024 Average Number of Drinks Not on file 024 Frequency of Binge Drinking Not on file 08/2023 Depression Answer Date Recorded Patient Health Questionnaire-9 Score 20 03/03/2024 Patient Health Questionnaire-9 Score 20 03/03/2024 Last PHQ-9: Questionnaire Data Not on file 1 05/04/2023 Housing Stability Answer Date Recorded What is your housing situation today? I have magaly anderson 07/05/[address] you li ve. Do you have problems with any of the following? None of the above 07/05/2024 Food Insecurity Answer Date Recorded Within the past 12 months, y ou worried that your food would run out before you got money to buy more: Never True 07/05/2024 Within the past 12 months,th e food you bought just didn't last and you didn't have enough money to get more: Never True 11/2024 Transportation Answer Date Recorded In the past 12 months, has l ack of transportation kept you from medical appts, meetings, work or from getting things needed for daily living? No 03/03/2024 Utilities Answer Date Recorded In the past 12 months, has t he electric, gas, oil or water company threatened to shut off services in your home? No 07/05/2024 Depression Answer Date Recorded Patient Health Questionnaire-2 Score 4 03/03/2024 Internet Access Answer Date Recorded Internet Access Q1 Yes 03/03/2024 Internet Access Q2 Not on file 03/03/2024 Comments Unknown Sex and Gender Information Value Date Recorded Sex Assigned at Female 02/01/2023 11:12 AM EST Legal Sex Female 7:48 AM EDT Gender Identity Transgender Male 01/26/2022 10:3 4 AM EDT Sexual Orientation Something else 06/11/2022 10 :44 AM EDT documented as of this encounter Plan of Treatment Upcoming Encounters Date Type Department Care Team (Late st Contact Info) Description 02/05/2025 10:45 AM EST Office Visit [facility] MEDICINE [address] [place] [address] Abiola Hassan MD [address] [place] [address] 04/09/2025 11:30 AM EST Office Visit [facility] OPTOMETRY [address] [place] [address] Aaron, Hellen, OD [address] [place] [address] documented as of this encounter Visit Diagnoses Diagnosis Myopia of both eyes- Primary Posterior staphyloma, 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
--- OUTSIDE RECORDS SUMMARY | 2025-02-02 09:10 | XMS_ITS | Encounter Summary ---
Author Organization [facility] Address [address] [place] [phone] Phone Care Team Providers Care Operations Executive Name Role Phone Mo, Abiola Garcia MD Primary Care Provi danya Encounter Details Date Type Department Care Team (Late st Contact Info) Description 04/26/2023 Procedure Pass [facility] Periop 1st floor [address] [place] [address] Social History Tobacco Use Types Packs/Day Years Used Date Smoking Tobacco: Never Smokeless Tobacco: Never Alcohol Use Standard Drinks/Week Comments Not Currently 0 (1 standard drink = 0.6 oz pur e alcohol) 1-2/week Education Answer Date Recorded Are you interested in more education? Not on jerald e 07/24/2022 Are you concerned about learning? Not on file 07/24/2022 No 07/24/2022 No 07/24/2022 Digital Access Answer Date Recorded No 08/25/2022 No 08/25/2022 Reliable internet access at home? Not on file 08/25/2022 Device with a working camera? Not on file Comments No Sex and Gender Information Value Date Recorded Sex Assigned at Female 12/24/2020 1:05 PM EDT Legal Sex Female 10:22 AM EST Gender Identity Male 12/24/2020 1:05 PM EDT Sexual Orientation Asexual 11/16/2023 2: 31 PM EDT Sexual Orientation Something else 11/16/2023 2: 31 PM EDT documented as of this encounter Plan of Treatment Upcoming Encounters Date Type Department Care Team (Latest Contact Info) Description 02/06/2025 1:00 PM EST Office Visit [facility] Plastic Surgery [address] [address] Keith Kirkpatrick MD, MS [address] [place] [address] [email or web address] 02/12/2025 Procedure Pass [facility] Periop [address] [place] [address] 02/12/2025 7:30 AM EST Hospital Encounter [facility] Periop [address] [place] [address] Keith Kirkpatrick MD, MS [address] [place] [address] [email or web address] 02/12/2025 7:30 AM EST - 02/12/2025 3:32 PM EST Surgery [facility] Periop [address] [place] [address] Keith Kirkpatrick MD, MS [address] [place] [address] [email or web address] Perineal phalloplasty, stage 2 with Urethral Lengthening, Perineal Closure, Clitoral burying, Scrotoplasty, and Glansplasty 02/20/2025 12:30 PM EST Office Visit [facility] Plastic Surgery [address] [place] [address] Darian Kessler PA-C [address] [place] [address] [email or web address] 03/06/2025 3:00 PM EST Office Visit [facility] Plastic Surgery [address] [place] [address] Keith Kirkpatrick MD, MS [address] [place] [address] [email or web address] 03/16/2025 11:00 AM EST Telemedicine [facility] Plastic Surgery [address] [place] [address] Darian Kessler PA-C [address] [place] [address] [email or web address] 03/23/2025 2:30 PM EST Office Visit [facility] Plastic Surgery [address] [place] [address] Darian Kessler PA-C [address] [place] [address] [email or web address] 07/10/2025 1:15 PM EDT Office Visit [facility] Plastic Surgery [address] [place] [address] Keith Kirkpatrick MD, MS [address] [place] [address] [email or web address] Scheduled Procedures Name Priority Associated Diagnoses Date/Ti me PHALLOPLASTY PERINEAL Gender dysphoria in adult 02/12/2025 7:30 AM EST VAGINECTOMY FOR GENDER AFFIRMATION Gender dysphoria in adult 02/12/2025 7:30 AM EST documented as of this encounter Visit Diagnoses Not on filedocumented in this encounter Additional Health Concerns Assessment Noted Time PHQ-2 Depression Total Score: 0 02/03/20 7:53 AM EST documented as of this encounter Care Teams Operations Executive Relationship Specialty Start Date End Date Abiola Hassan MD [address] [place] [address] PCP - General Family Medicine 12/24/20 documented as of this encounter Additional Source Comments The information contained in this document represents components of the legal health record. It is not the complete legal health record.[facility]
--- OUTSIDE RECORDS SUMMARY | 2025-02-02 09:10 | XMS_ITS | Encounter Summary ---
Author Organization [facility] Address [address] [place] [address] Phone Care Team Providers Care Keysmith Name Role Phone Mo, Abiola Garcia MD Primary Care Provi [facility] Encounter Details Date Type Department Care Team (Late st Contact Info) Description 02/07/2023 Prep for Surgery [facility] Urogynecology [address] [place] [address] [place] [address] Nicolas Carlson MD, MPH [address] director of [place] [address] [email or web address] Social History Tobacco Use Types Packs/Day Years [...] PM EDT Sexual Orientation Something else 11/16/2023 2 :31 PM EDT documented as of this encounter Plan of Treatment Upcoming Encounters Date Type Department Care Team (Latest Contact Info) Description 02/06/2025 1:00 PM EST Office Visit [facility] Plastic Surgery [address] [address] Keith Kirkpatrick MD, MS [address] [place] [address] [email or web address] 02/12/2025 Procedure Pass [facility] Periop [address] [place] [address] 02/12/2025 7:30 AM EST Hospital Encounter [facility] Periop [address] [place] [address] Keith Kirkpatrick MD, MS [address] [place] [address] [email or web address] 02/12/2025 7:30 AM EST - 02/12/2025 3:32 PM EST Surgery [facility] Periop [address] [place] [address] Keith Kirkpatrick MD, MS [address] [place] [address] [email or web address] Perineal phalloplasty, stage 2 with Urethral Lengthening, Perineal Closure, Clitoral burying, Scrotoplasty, and Glansplasty 02/20/2025 12:30 PM EST Office Visit [facility] Plastic Surgery [address] [place] [address] Darian Kessler PA-C [address] [place] [address] [email or web address] 03/06/2025 3:00 PM EST Office Visit [facility] Plastic Surgery [address] [place] [address] Keith Kirkpatrick MD, MS [address] [place] [address] [email or web address] 03/16/2025 11:00 AM EST Telemedicine [facility] Plastic Surgery [address] [place] [address] Darian Kessler PA-C [address] [place] [address] [email or web address] 03/23/2025 2:30 PM EST Office Visit [facility] Plastic Surgery [address] [place] [address] Darian Kessler PA-C [address] [place] [address] [email or web address] 07/10/2025 1:15 PM EDT Office Visit [facility] Plastic Surgery [address] [place] [address] Keith Kirkpatrick MD, MS [address] [place] [address] [email or web address] Scheduled Procedures Name Priority Associated Diagnoses [...] documented as of this encounter Care Teams Keysmith Relationship Specialty Start Date End Date Mcclain, Abiola Garcia MD [address] [place] [address] PCP - General Family Medicine 12/24/20 documented as of this encounter Additional Source Comments The information contained in this document represents components of the legal health record. It is not the complete legal health record.[facility]
--- OUTSIDE RECORDS SUMMARY | 2025-02-02 09:10 | XMS_ITS | Encounter Summary ---
Author Organization [facility] Address [address] [place] [address] Phone Care Team Providers Care Internal Specialist Name Role Phone Mo, Abiola Garcia MD Primary Care Pro[facility] Encounter Details Date Type Department Care Team (Late st Contact Info) Description 12/09/2023 Procedure Pass [facility] Periop [address] [place] [address] Social History Tobacco Use Types Packs/Day Years [...] with a working camera? Not on file Intimate Partner Violence Answer Date R ecorded Are you denied basic needs s uch as food, clothing, or medical care? No 12/09/2023 In the past 12 months have y ou been in a relationship with a person who hurts, threatens, or tries to control you? No 12/09/2023 Are you denied basic needs s uch as food, clothing, or medical care? No 12/09/2023 In the past 12 months have y ou been in a relationship with a person who hurts, threatens, or tries to control you? No 12/09/2023 Comments No Sex and Gender Information Value Date Recorded Sex Assigned at Female 12/24/2020 1:05 PM EDT Legal Sex Female 10:22 AM EST Gender Identity Male 12/24/2020 1:05 PM EDT Sexual Orientation Asexual 11/16/2023 2: 31 PM EDT Sexual Orientation Something else 11/16/2023 2: 31 PM EDT documented as of this encounter Functional Status * Calculated C-SSRS Risk Score (Lifetime/Recent) Answer Date of Assessment Author No Risk Indicated 12/09/2023 9:54 PM EDT Terri Lange RN * Pierce Suicide Severity Rating Scale (Screener/Recent Self-Report) Question Answer Date of Assessment Author 1. Wish to be (Past 1 Month) No 12/09/2023 9:54 PM EDT Terri Lagne RN 2. Non-Specific Active Suici kolton Thoughts (Past 1 Month) No 12/09/2023 9:54 PM EDT Willa Lange RN 6. Suicidal Behavior (Lifetime) No 9:54 PM EDT Terri Lange RN documented as of this encounter Plan of Treatment Upcoming Encounters Date Type Department Care Team (Latest Contact Info) Description 02/06/2025 1:00 PM EST Office Visit [facility] Plastic Surgery [address] [address] Keith Kirkpatrick MD, MS [address] [place] [address] [email or web address] 02/12/2025 Procedure Pass [facility] Periop [address] [place] [address] 02/12/2025 7:30 AM EST Hospital Encounter [facility] Periop [address] [place] [address] Keith Kirkpatrick MD, MS [address] [place] [address] [email or web address] 02/12/2025 7:30 AM EST - 02/12/2025 3:32 PM EST Surgery [facility] Periop [address] [place] [address] Keith Kirkpatrick MD, MS [address] [place] [address] [email or web address] Perineal phalloplasty, stage 2 with Urethral Lengthening, Perineal Closure, Clitoral burying, Scrotoplasty, and Glansplasty 02/20/2025 12:30 PM EST Office Visit [facility] Plastic Surgery [address] [place] [address] Darian Kessler PA-C [address] [place] [address] [email or web address] 03/06/2025 3:00 PM EST Office Visit [facility] Plastic Surgery [address] [address] Keith Kirkpatrick MD, MS [address] [place] [address] [email or web address] 03/16/2025 11:00 AM EST Telemedicine [facility] Plastic Surgery [address] [address] Darian Kessler PA-C [address] [place] [address] [email or web address] 03/23/2025 2:30 PM EST Office Visit [facility] Plastic Surgery [address] [place] [address] Darian Kessler PA-C [address] [place] [address] [email or web address] 07/10/2025 1:15 PM EDT Office Visit [facility] Plastic Surgery [address] [address] Keith Kirkpatrick MD, MS [address] [place] [address] [email or web address] Scheduled Procedures Name Priority Associated Diagnoses Date/Ti me PHALLOPLASTY PERINEAL Gender dysphoria in adult 02/12/2025 7:30 AM EST VAGINECTOMY FOR GENDER AFFIRMATION Gender dysphoria in adult 02/12/2025 7:30 AM EST documented as of this encounter Visit Diagnoses Not on filedocumented in this encounter Additional Health Concerns Assessment Noted Time PHQ-2 Depression Total Score: 0 02/03/20 23 7:53 AM EST documented as of this encounter Care Teams Internal Specialist Relationship Specialty Start Date End Date Abiola Hassan MD [address] [place] [address] PCP - General Family Medicine 12/24/20 documented as of this encounter Additional Source Comments The information contained in this document represents components of the legal health record. It is not the complete legal health record.[facility]
--- OUTSIDE RECORDS SUMMARY | 2025-02-02 09:10 | XMS_ITS | Encounter Summary ---
Author Organization [facility] Address [address] [place] [address] Phone Care Team Providers Care Siebel Crm Developer Name Role Phone Mo, Abiola Garcia MD Primary Care [facility] Encounter Details Date Type Department Care Team (Late st Contact Info) Description 02/07/2023 Prep for Surgery [facility] Urogynecology [address] [place] [address] Nicolas Carlson MD, MPH [address] social science analyst [place] [address] [email or web address] Social History Tobacco Use Types Packs/Day [...] Description 02/06/2025 1:00 PM EST Office Visit [facility] Plastic Surgery [address] [address] Keith Kirkpatrick MD, MS 75 [place] [address] [email or web address] 02/12/2025 Procedure Pass [facility] Periop [address] [place] [address] 02/12/2025 7:30 AM EST Hospital Encounter [facility] Periop [address] [place] [address] Keith Kirkpatrick MD, MS 75 [place] [address] [email or web address] 02/12/2025 7:30 AM EST - 02/12/2025 3:32 PM EST Surgery [facility] Periop [address] [place] [address] Keith Kirkpatrick MD, MS 75 [place] [address] [email or web address] Perineal phalloplasty, stage 2 with Urethral Lengthening, Perineal Closure, Clitoral burying, Scrotoplasty, and Glansplasty 02/20/2025 12:30 PM EST Office Visit [facility] Plastic Surgery [address] [place] [address] Darian Kessler PA-C [address] [place] [address] [email or web address] 03/06/2025 3:00 PM EST Office Visit [facility] Plastic Surgery [address] [place] [address] Keith Kirkpatrick MD, MS 75 [place] [address] [email or web address] 03/16/2025 11:00 AM EST Telemedicine [facility] Plastic Surgery [address] [place] [address] Darian Kessler PA-C [address] [place] [address] [email or web address] 03/23/2025 2:30 PM EST Office Visit [facility] Plastic Surgery [address] [place] [address] Darian Kessler PA-C [address] [place] [address] [email or web address] 07/10/2025 1:15 PM EDT Office Visit [facility] Plastic Surgery [address] [place] [address] Keith Kirkpatrick MD, MS 75 [place] [address] [email or web address] Scheduled Procedures Name Priority Associated Diagnoses [...] documented as of this encounter Care Teams Siebel Crm Developer Relationship Specialty Start Date End Date Perkins, Abiola Garcia MD 230 [place] [address] PCP - General Family Medicine 12/24/20 documented as of this encounter Additional Source Comments The information contained in this document represents components of the legal health record. It is not the complete legal health record.[facility]
--- OUTSIDE RECORDS SUMMARY | 2025-02-02 09:10 | XMS_ITS | Encounter Summary ---
Author Organization [employer] [facility] Address [address] [place] [address] Phone Care Team Providers Care Organ Pipe Maker Metal Name Role Phone Mo, Abiola Garcia MD Primary Care [facility] Encounter Details Date Type Department Care Team (Late st Contact Info) Description 05/25/2024 Procedure Pass [facility] Periop 75 [place] [address] Social History Tobacco Use Types Packs/Day Years [...] as food, clothing, or medical care? No 05/23/2024 In the past 12 months have y ou been in a relationship with a person who hurts, threatens, or tries to control you? No 05/23/2024 Are you denied basic needs s uch as food, clothing, or medical care? No 05/23/2024 In the past 12 months have y ou been in a relationship with a person who hurts, threatens, or tries to control you? No 05/23/2024 Comments No Sex and Gender Information Value [...] Description 02/06/2025 1:00 PM EST Office Visit [facility] Plastic Surgery [address] [address] Keith Kirkpatrick MD, MS 75 [place] [address] [email or web address] 02/12/2025 Procedure Pass [facility] Periop 75 [place] [address] 02/12/2025 7:30 AM EST Hospital Encounter [facility] Periop 75 [place] [address] Keith Kirkpatrick MD, MS 75 [place] [address] [email or web address] 02/12/2025 7:30 AM EST - 02/12/2025 3:32 PM EST Surgery [facility] Periop 75 [place] [address] Keith Kirkpatrick MD, MS 75 [place] [address] [email or web address] ERAS Perineal phalloplasty, stage 2 with Urethral Lengthening, Perineal Closure, Clitoral burying, Scrotoplasty, and Glansplasty 02/20/2025 12:30 PM EST Office Visit [facility] Plastic Surgery [address] [place] [address] Darian Kessler PA-C [address] [place] [address] [email or web address] 03/06/2025 3:00 PM EST Office Visit [facility] Plastic Surgery [address] [place] [address] Keith Kirkpatrick MD, MS 75 [place] [address] [email or web address] 03/16/2025 11:00 AM EST Telemedicine [facility] Plastic Surgery [address] [place] [address] Darian Kessler PA-C [address] [place] [address] [email or web address] 03/23/2025 2:30 PM EST Office Visit [facility] Plastic Surgery [address] [place] [address] Darian Kessler PA-C [address] [place] [address] [email or web address] 07/10/2025 1:15 PM EDT Office Visit [facility] Plastic Surgery [address] [place] [address] Keith Kirkpatrick MD, MS 75 [place] [address] [email or web address] Scheduled Procedures Name Priority Associated Diagnoses [...] documented as of this encounter Care Teams Organ Pipe Maker Metal Relationship Specialty Start Date End Date Abiola Hassan MD [address] [place] [address] PCP - General Family Medicine 12/24/20 documented as of this encounter Additional Source Comments The information contained in this document represents components of the legal health record. It is not the complete legal health record.[facility]
--- OUTSIDE RECORDS SUMMARY | 2025-02-02 09:10 | XMS_ITS | Encounter Summary ---
Author Organization [employer] [facility] Address [address] [place] [address] Phone Care Team Providers Care Rn Pediatric Icu Name Role Phone Mo, Abiola Garcia MD Primary Care [facility] Encounter Details Date Type Department Care Team (Late st Contact Info) Description 04/29/2023 Procedure Pass [facility] Periop 75 [place] [address] Social History Tobacco Use Types Packs/Day Years [...] Description 02/06/2025 1:00 PM EST Office Visit [facility] Plastic Surgery [address] [address] Keith Kirkpatrick MD, MS 75 [place] [address] [email or web address] 02/12/2025 Procedure Pass [facility] Periop [address] [place] [address] 02/12/2025 7:30 AM EST Hospital Encounter [facility] Periop [address] [place] [address] Keith Kirkpatrick MD, MS 75 [place] [address] [email or web address] 02/12/2025 7:30 AM EST - 02/12/2025 3:32 PM EST Surgery [facility] Periop [address] [place] [address] Keith Kirkpatrick MD, MS 75 [place] [address] [email or web address] Perineal phalloplasty, stage 2 with Urethral Lengthening, Perineal Closure, Clitoral burying, Scrotoplasty, and Glansplasty 02/20/2025 12:30 PM EST Office Visit [facility] Plastic Surgery [address] [place] [address] Darian Kessler PA-C 75 [place] [address] [email or web address] 03/06/2025 3:00 PM EST Office Visit [facility] Plastic Surgery [address] [place] [address] Keith Kirkpatrick MD, MS 75 [place] [address] [email or web address] 03/16/2025 11:00 AM EST Telemedicine [facility] Plastic Surgery [address] [place] [address] Darian Kessler PA-C [address] [place] [address] [email or web address] 03/23/2025 2:30 PM EST Office Visit [facility] Plastic Surgery [address] [place] [address] Darian Kessler PA-C [address] [place] [address] [email or web address] 07/10/2025 1:15 PM EDT Office Visit [facility] Plastic Surgery [address] [place] [address] Keith Kirkpatrick MD, MS 75 [place] [address] [email or web address] Scheduled Procedures Name Priority Associated Diagnoses [...] documented as of this encounter Care Teams Rn Pediatric Icu Relationship Specialty Start Date End Date Abiola Hassan MD [address] [place] [address] PCP - General Family Medicine 12/24/20 documented as of this encounter Additional Source Comments The information contained in this document represents components of the legal health record. It is not the complete legal health record.[facility]
--- OUTSIDE RECORDS SUMMARY | 2025-02-02 09:10 | XMS_ITS | Encounter Summary ---
Author Organization [facility] Address [address] [place] [address] Phone Care Team Providers Care Amusement Machine Mechanic Name Role Phone Mo, Abiola Garcia MD Primary Care [facility] Encounter Details Date Type Department Care Team (Late st Contact Info) Description 07/20/2022 Telephone [facility] [address] [place] [address] Elvia Pemberton MD, MPH [address] [place] [address] [email or web address] Social History Tobacco Use Types Packs/Day Years Used Date Smoking Tobacco: Never Smokeless Tobacco: Never Alcohol Use Standard Drinks/Week Comments Yes 0 (1 standard drink = 0.6 oz pur e alcohol) 1-2/week Education Answer Date Recorded Are you interested in more education? Not on jerald e 07/24/2022 Are you concerned about learning? Not on file 07/24/2022 No 07/24/2022 No 07/24/2022 Comments No Sex and Gender Information Value [...] Description 02/06/2025 1:00 PM EST Office Visit [facility] Plastic Surgery [address] [place] [address] Keith Kirkpatrick MD, MS 75 [place] [address] [email or web address] 02/12/2025 Procedure Pass [facility] Periop [address] [place] [address] 02/12/2025 7:30 AM EST Hospital Encounter [facility] Periop [address] [place] [address] Keith Kirkpatrick MD, MS 75 [place] [address] [email or web address] 02/12/2025 7:30 AM EST - 02/12/2025 3:32 PM EST Surgery [facility] Periop [address] [place] [address] Keith Kirkpatrick MD, MS 75 [place] [address] [email or web address] Perineal phalloplasty, stage 2 with Urethral Lengthening, Perineal Closure, Clitoral burying, Scrotoplasty, and Glansplasty 02/20/2025 12:30 PM EST Office Visit [facility] Plastic Surgery [address] [place] [address] Darian Kessler PA-C [address] [place] [address] [email or web address] 03/06/2025 3:00 PM EST Office Visit [facility] Plastic Surgery [address] [place] [address] Keith Kirkpatrick MD, MS 75 [place] [address] [email or web address] 03/16/2025 11:00 AM EST Telemedicine [facility] Plastic Surgery [address] [place] [address] Darian Kessler PA-C [address] [place] [address] [email or web address] 03/23/2025 2:30 PM EST Office Visit [facility] Plastic Surgery [address] [place] [address] Darian Kessler PA-C [address] [place] [address] [email or web address] 07/10/2025 1:15 PM EDT Office Visit [facility] Plastic Surgery [address] [place] [address] Keith Kirkpatrick MD, MS 75 [place] [address] [email or web address] Scheduled Procedures Name Priority Associated Diagnoses Date/Ti me PHALLOPLASTY PERINEAL Gender dysphoria in adult 02/12/2025 7:30 AM EST VAGINECTOMY FOR GENDER AFFIRMATION Gender dysphoria in adult 02/12/2025 7:30 AM EST documented as of this encounter Visit Diagnoses Not on filedocumented in this encounter Care Teams Amusement Machine Mechanic Relationship Specialty Start Date End Date Abiola Hassan MD [address] [place] [address] PCP - General Family Medicine 12/24/20 documented as of this encounter Additional Source Comments The information contained in this document represents components of the legal health record. It is not the complete legal health record.[facility]
--- OUTSIDE RECORDS SUMMARY | 2025-02-02 09:11 | XMS_ITS | Encounter Summary ---
Author Organization [employer] Address 75 [facility] 7t [place] [address] Care Team Providers Care Winding Inspector Name Role Phone Abiola Hassan MD Primary Care Provider [phone]- [phone] Hellen Walker OD Unavailable [phone] Encounter Details Date Type Department Care Team ([facility] st Contact Info) Description 01/31/2025 Telephone [facility] MEDICINE 230 [place], [place] [phone] Abiola Hassan MD 230 [place], [place] [phone] Social History Tobacco Use Types Packs/Day Years [...] AM EDT documented as of this encounter Miscellaneous Notes * Telephone Encounter - Abiola Hassan MD - 01/31/2025 8:46 AM EST Please ask Jame to get fasting labs 3 or 4 days after his shot before his apt on 02/05/25. He can use [facility] if he needs to go on a Wednesday or can use our labs. Thank you. documented in this encounter Plan of Treatment Upcoming Encounters Date Type Department Care Team (Late st Contact Info) Description 02/05/2025 10:45 AM EST Office Visit [facility] MEDICINE [address] [place] [address] Abiola Hassan MD 230 [place] [address] 04/09/2025 11:30 AM EST Office Visit [facility] OPTOMETRY [address] [place] [address] Hellen Walker, EFRAÍN [address] [place] [address] documented as of this encounter Visit Diagnoses Not on filedocumented in this encounter Additional Health Concerns Assessment Noted Time PHQ-9 Depression Total Score: 20 024 10:36 AM EST documented as of this encounter Care Teams Winding Inspector Relationship Specialty Start Date End Date Abiola Hassan MD [address] [place] [address] PCP - General Family Medicine 02/28/18 Hellen Walker OD [address] [place] [address] Optometry 05/29/24 Keith Kirkpatrick MD, MS Plastic and Reconstructive Surgery [address] [place] [address] 05/29/24 documented as of this encounter
--- OUTSIDE RECORDS SUMMARY | 2025-02-02 09:11 | XMS_ITS | Encounter Summary ---
Author Organization [employer] Address 75 [facility] 7t [place] [address] Care Team Providers Care Sat Act Instructor Name Role Phone Abiola Hassan MD Primary Care Provider [phone] Hellen Walker OD Unavailable Encounter Details Date Type Department Care Team (Late st Contact Info) Description 01/29/2023 Orders Only [facility] MEDICINE 230 [place], [place] [phone] Abiola Hassan MD 230 [place] [address] Gender dysphoria in adult (Primary Dx) Social History Tobacco Use Types Packs/Day Years Used Date Smoking Tobacco: Never Smokeless Tobacco: Never Depression Answer Date Recorded Patient Health Questionnaire-9 Score 0 01/20/2023 Patient Health Questionnaire-9 Score 0 01/20/2023 Last PHQ-9: Questionnaire Data Not on file 1 Housing Stability Answer Date Recorded What is your housing situation today? I have housing today, but I am worried about losing housing in the future 01/20/[address] you li ve. Do you have problems with any of the following? None of the above 01/20/2023 Food Insecurity Answer Date Recorded Within the past 12 months, y ou worried that your food would run out before you got money to buy more: Never True 01/20/2023 Within the past 12 months,th e food you bought just didn't last and you didn't have enough money to get more: Never True Transportation Answer Date Recorded In the past 12 months, has l ack of transportation kept you from medical appts, meetings, work or from getting things needed for daily living? No 01/20/2023 Utilities Answer Date Recorded In the past 12 months, has t he electric, gas, oil or water company threatened to shut off services in your home? No 01/20/2023 Depression Answer Date Recorded Patient Health Questionnaire-2 Score 0 01/20/2023 Comments Unknown Sex and Gender Information Value [...] Description 02/05/2025 10:45 AM EST Office Visit [facility] MEDICINE [address] [place] [address] Abiola Hassan MD [address] [place] [address] 04/09/2025 11:30 AM EST Office Visit [facility] OPTOMETRY [address] [place] [address] Hellen Walker, OD 230 [place] [address] documented as of this encounter Visit Diagnoses Diagnosis Gender dysphoria in adult- Primary Gender dysphoria in adult- Primary documented in this encounter Additional Health Concerns Assessment Noted Time PHQ-9 Depression Total Score: 0 01/21/20 23 3:13 PM EDT documented as of this encounter Care Teams Sat Act Instructor Relationship Specialty Start Date End Date Abiola Hassan MD [address] [place] [address] PCP - General Family Medicine 02/28/18 Hellen Walker, OD [address] [place] [address] Optometry 05/29/24 Keith Kirkpatrick MD, MS Plastic and Reconstructive Surgery [address] [place] [address] 05/29/24 documented as of this encounter
--- OUTSIDE RECORDS SUMMARY | 2025-02-02 09:11 | XMS_ITS | Encounter Summary ---
Author Organization [employer] Address 75 [facility] 7t [place] [address] Care Team Providers Care Typewriter Mechanic Name Role Phone Abiola Hassan MD Primary Care Provider [phone]- [phone] Hellen Walker OD Unavailable Reason for Visit * Reason Onset Date Comments Med Refill 04/26/2023 Encounter Details Date Type Department Care Team (Late st Contact Info) Description 04/26/[address] [facility] MEDICINE [address] [place], [place] [phone] Abiola Hassan MD [address] [place] [address] Gender dysphoria in adult; Gender dysphoria Social History Tobacco Use Types Packs/Day Years [...] Description 02/05/2025 10:45 AM EST Office Visit [facility] MEDICINE [address] [place] [address] Abiola Hassan MD [address] [place] [address] 04/09/2025 11:30 AM EST Office Visit [facility] OPTOMETRY [address] [place] [address] Hellen Walker, EFRAÍN [address] [place] [address] documented as of this encounter Visit Diagnoses Diagnosis Gender dysphoria in adult Gender dysphoria Gender dysphoria in adult- Primary documented in this encounter Additional Health Concerns Assessment Noted Time PHQ-9 Depression Total Score: 0 01/21/20 23 3:13 PM EDT documented as of this encounter Care Teams Typewriter Mechanic Relationship Specialty Start Date End Date Abiola Hassan MD [address] [place] [address] PCP - General Family Medicine 02/28/18 Hellen Walker, EFRAÍN [address] [place] [address] Optometry 05/29/24 Keith Kirkpatrick MD, MS Plastic and Reconstructive Surgery [address] [place] [address] 05/29/24 documented as of this encounter
--- OUTSIDE RECORDS SUMMARY | 2025-02-02 09:11 | XMS_ITS | Encounter Summary ---
Author Organization [employer] Address 75 [facility] 7t [place] [address] Care Team Providers Care Package Checker Name Role Phone Abiola Hassan MD Primary Care Provider [phone]- [phone] Hellen Walker OD Unavailable Reason for Visit * Reason Onset Date Comments Med Refill 05/26/2023 Encounter Details Date Type Department Care Team (Late st Contact Info) Description 05/26/2023 Refill [facility] MEDICINE 230 [place], [place] [phone] Abiola Hassan MD 230 [place] [address] Gender dysphoria in adult Social History Tobacco Use Types Packs/Day Years [...] Description 02/05/2025 10:45 AM EST Office Visit [facility] MEDICINE [address] [place] [address] Abiola Hassan MD [address] [place] [address] 04/09/2025 11:30 AM EST Office Visit [facility] OPTOMETRY [address] [place] [address] Hellen Walker, OD [address] [place] [address] documented as of this encounter Visit Diagnoses Diagnosis Gender dysphoria in adult Gender dysphoria in adult- Primary documented in this encounter Additional Health Concerns Assessment Noted Time PHQ-9 Depression Total Score: 0 01/21/20 23 3:13 PM EDT documented as of this encounter Care Teams Package Checker Relationship Specialty Start Date End Date Abiola Hassan MD [address] [place] [address] PCP - General Family Medicine 02/28/18 Hellen Walker, OD [address] [place] [address] Optometry 05/29/24 Keith Kirkpatrick MD, MS Plastic and Reconstructive Surgery [address] [place] [address] 05/29/24 documented as of this encounter
--- OUTSIDE RECORDS SUMMARY | 2025-02-02 09:11 | XMS_ITS | Encounter Summary ---
Author Organization [employer] Address 75 [facility] 7t [place] [address] Care Team Providers Care Breaker Hand Name Role Phone Abiola Hassan MD Primary Care Provider +1- [phone] Hellen Walker OD Unavailable [phone] Encounter Details Date Type Department Care Team (Latest Contact Info) Description 01/30/2025 Travel Social History Tobacco Use Types Packs/Day Years [...] Visit [facility] MEDICINE [address] [place] [address] Abiola Hassan MD [address] [place] [address] 04/09/2025 11:30 AM EST Office Visit [facility] OPTOMETRY [address] [place] [address] Hellen Walker, OD 230 [place] [address] documented as of this encounter Visit Diagnoses Not on filedocumented in this encounter Additional Health Concerns Assessment Noted Time PHQ-9 Depression Total Score: 20 024 10:36 AM EST documented as of this encounter Care Teams Breaker Hand Relationship Specialty Start Date End Date Abiola Hassan MD [address] [place] [address] PCP - General Family Medicine 02/28/18 Hellen Walker, OD [address] [place] [address] Optometry 05/29/24 Keith Kirkpatrick MD, MS Plastic and Reconstructive Surgery [address] [place] [address] 05/29/24 documented as of this encounter
--- OUTSIDE RECORDS SUMMARY | 2025-02-02 09:11 | XMS_ITS | Encounter Summary ---
Author Organization [employer] Address [address] [place] [address] 7 [place] [address] Care Team Providers Care Materials Intern Name Role Phone Abiola Hassan MD Primary Care Provider Hellen Walker OD Unavailable Encounter Details Date Type Department Care Team (Latest Contact Info) Description 12/13/2018 Abstract [facility] Dental, Provider, DDS Social History Tobacco [...] Description 02/05/2025 10:45 AM EST Office Visit [facility] [address] [place] [address] Abiola Hassan MD [address] [place] [address] 04/09/2025 11:30 AM EST Office Visit [facility] [address] [place], [place] [phone] Hellen Walker, OD 230 [place] [address] documented as of this encounter Visit Diagnoses Not on filedocumented in this encounter Care Teams Materials Intern Relationship Specialty Start Date End Date Abiola Hassan MD [address] [place] [address] PCP - General Family Medicine 02/28/18 Hellen Walker OD [address] [place] [phone] Optometry 05/29/24 Keith Kirkpatrick MD, MS Plastic and Reconstructive Surgery [address] [place] [phone] 05/29/24 documented as of this encounter
--- OUTSIDE RECORDS SUMMARY | 2025-02-02 09:11 | XMS_ITS | Encounter Summary ---
Author Organization [employer] Address [address] [facility] 7t [place] [address] Care Team Providers Care Receiving Inspector Name Role Phone [place], Abiola VEGA Primary Care Provider [phone] Hellen Walker OD Unavailable Reason for Visit * Reason Onset Date Comments Med Refill 08/28/2023 Encounter Details Date Type Department Care Team (Late st Contact Info) Description 08/28/2023 Refill [facility] 230 [place], [place] [phone] Ally Ceja MD 230 [place] [address] Gender dysphoria Social History Tobacco Use Types [...] Description 02/05/2025 10:45 AM EST Office Visit [facility] [address] [place] [address] Abiola Hassan MD [address] [place] [address] 04/09/2025 11:30 AM EST Office Visit [facility] OPTOM[facility] [address] [place] [address] Hellen Walker, OD [address] [place] [address] documented as of this encounter Visit Diagnoses Diagnosis Gender dysphoria Gender dysphoria in adult- Primary documented in this encounter Additional Health Concerns Assessment Noted Time PHQ-9 Depression Total Score: 0 01/21/20 23 3:13 PM EDT documented as of this encounter Care Teams Receiving Inspector Relationship Specialty Start Date End Date Abiola Hassan MD [address] [place] [address] PCP - General Family Medicine 02/28/18 Hellen Walker, OD [address] [place] [phone] Optometry 05/29/24 Keith Kirkpatrick MD, MS Plastic and Reconstructive Surgery [address] [place] [address] 05/29/24 documented as of this encounter
--- OUTSIDE RECORDS SUMMARY | 2025-02-02 09:11 | XMS_ITS | Encounter Summary ---
Author Organization [employer] Address 75 [facility] 7t [place] [address] Care Team Providers Care Solar Systems Designer Name Role Phone [place], Abiola VEGA Primary Care Provider [phone]- [phone] Hellen Walker OD Unavailable [phone] Reason for Visit * Reason Onset Date Comments Med Refill 09/22/2023 Encounter Details Date Type Department Care Team (Late st Contact Info) Description 09/22/2023 Refill [facility] MEDICINE 230 [place], [place] [phone] Ally Ceja MD 230 [place] [address] Gender dysphoria in adult Social History Tobacco [...] Description 02/05/2025 10:45 AM EST Office Visit [facility] MEDICINE [address] [place] [address] Abiola Hassan MD [address] [place] [address] 04/09/2025 11:30 AM EST Office Visit [facility] OPTOMETRY [address] [place] [address] Hellen Wlaker, OD [address] [place] [address] documented as of this encounter Visit Diagnoses Diagnosis Gender dysphoria in adult Gender dysphoria in adult- Primary documented in this encounter Additional Health Concerns Assessment Noted Time PHQ-9 Depression Total Score: 0 01/21/20 23 3:13 PM EDT documented as of this encounter Care Teams Solar Systems Designer Relationship Specialty Start Date End Date Abiola Hassan MD [address] [place] [phone] PCP - General Family Medicine 02/28/18 Hellen Walker, OD [address] [place] [address] Optometry 05/29/24 Keith Kirkpatrick MD, MS Plastic and Reconstructive Surgery [address] [place] [address] 05/29/24 documented as of this encounter
--- OUTSIDE RECORDS SUMMARY | 2025-02-02 09:11 | XMS_ITS | Clinical Summary ---
Author Organization [employer] Address [address] [place] [address] 7t [place] [address] Care Team Providers Care Stretcher Helper Name Role Phone Abiola Hassan MD Primary Care Provider [phone] Kosta Walkern OD Unavailable [phone] Allergies Active Allergy Reactions Criticality Noted Date Comments Penicillin G Unknown 11/13/2023 Medications Needle, Disp, (B-D BLUNT FILL NEEDLE) 18G X 1-1/2 miscIndications :Gender dysphoria in adult USE 1 EVERY 14 DAYS 25 each 3 5 Active insulin syringe-needle U-100 (B-D INS SYR ULTRAFINE 1CC/30G) 30G X 1/2 1 ML miscIndications :Gender dysphoria in adult USE DIRECTED TO INJECT TESTOSTERONE ONE DAY A WEEK 10 each 3 5 Active testosterone cypionate (Depo-Testoster one) 200 MG/ML injectionIndica tions:Gender dysphoria in adult INJECT 0.4 ML EVERY 2 WEEKS 2 mL 3 5 Active Active Problems Problem Noted Date Diagnosed Date Other specified health status 01/13/2023 Overview (07/12/2024): -next physical exam due after 07/12/25 -eye care facilitated by [facility] -dental home is [facility] Assessment & Plan (07/12/2024 11:44 AM EDT): -next physical exam due after 07/12/25 -eye care facilitated by [facility] -dental home is [facility] Assessment & Plan (03/03/2024 9:34 PM EST): -next physical exam due after 02/20/2025 -eye care facilitated by [facility] -dental home is [facility] Assessment & Plan (01/20/2023 3:29 PM EDT): -next physical exam due after 01/21/2024 -eye care facilitated by [facility] -dental home is [facility] Pathologic myopia, 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 Ehsan Tavares. -S/p laparoscopic total hysterectomy with bilateral salpingo-oophorectomy, vaginectomy and cystoscopy on 06/23/[address] Nicolas Carlson. -underwent stage 1 phalloplasty - left RFFF with urethral lengthening and immediate skin grafting by Dr. Keith Kirkpatrick on 12/09/23, stage 2 is scheduled for July 13, 2024 -changed procedure date, underwent revision of urethral meatus w/STSG by Dr. Keith Kirkpatrick on 05/25/24 Lab Results Component Value Date TOTALBILIRUB 0.3 10/16/2024 AST 34 (H) 10/16/2024 ALT 23 10/16/2024 ALT 8 02/06/2022 HGB 13.9 10/16/2024 HGB 17.7 (H) 02/06/2022 HCT 44.4 10/16/2024 TRIG 81 10/16/2024 LDLCHOLCAL 74 10/16/2024 HDL 61 10/16/2024 CHOL 151 10/16/2024 Assessment & Plan (07/12/2024 11:43 AM EDT): -continue Testosterone CYPIONATE 200 mg/ml is at 0.4 ml/ 80mg subcutaneously EVERY TWO WEEKS -goal testosterone 350-700 -S/p chest reconstruction surgery 08/[address] Ehsan Tavares. -S/p laparoscopic total hysterectomy with bilateral salpingo-oophorectomy, vaginectomy and cystoscopy on 06/23/[address] Nicolas Carlson. -underwent stage 1 phalloplasty - left RFFF with urethral lengthening and immediate skin grafting by Dr. Keith Kirkpatrick on 12/09/23, stage 2 is scheduled for July 13, 2024 -changed procedure date, underwent revision of urethral meatus w/STSG by Dr. Keith Kirkpatrick on 05/25/24 -labs due 3 months Assessment & Plan (03/03/2024 9:33 PM EST): Pt was followed by Dr. Stone , last visit 02/13/2021 but she has left the area. He will continue care with PCP. -continue Testosterone CYPIONATE 200 mg/ml is at 0.4 ml/ 80mg IM EVERY TWO WEEKS -goal testosterone 350-700 -Cholesterol profile at goal 01/2021 -LFT is normal 01/2021 -S/p chest reconstruction surgery 08/[address] Ehsan Tavares. - S/p laparoscopic total hysterectomy with bilateral salpingo-oophorectomy, vaginectomy and cystoscopy on 06/23/[address] Nicolas Carlson. - underwent stage 1 phalloplasty - left RFFF with urethral lengthening and immediate skin grafting by Dr. Keith Kirkpatrick on 12/09/23, stage 2 is scheduled for July 13, 2024 Assessment & Plan (07/02/2023 9:43 AM EDT): Pt was followed by Dr. Stone , last visit 02/13/2021 but she has left the area. He will continue care with PCP. -continue Testosterone CYPIONATE 200 mg/ml is at 0.2 ml/ 40mg IM weekly. Labs 01/2021 showed low Testosterone but he was off for a few months due to unit receptionist left the area. Labs 04/22/2019 showed total testosterone 380 ( goal 350-700) -Cholesterol profile at goal 01/2021 -LFT is normal 01/2021 -S/p chest reconstruction surgery 08/[address] Ehsan Tavares. -Pt desires phalloplasty and has intake in [place] for June 2021, he is aware of the [facility] resource on line. - S/p laparoscopic total hysterectomy with bilateral salpingo-oophorectomy, vaginectomy and cystoscopy on 06/23/23 by Nicolas Ko. - pt had hemorrhage post-op day 8 and was seen at [facility], Ct scan and labs were done (requested by me 07/02/23), sutures intact on exam, no current bleeding, vital signs stable and asymptomatic, pt will contact surgeon for follow up, advised ER if bleeding returns, check Testosterone in Televisit in one month. Assessment & Plan (01/20/2023 2:59 PM EDT): Pt was followed by Dr. Stone , last visit 02/13/2021 but she has left the area. He will continue care with PCP. -continue Testosterone CYPIONATE 200 mg/ml is at 0.2 ml/ 40mg IM weekly. Labs 01/2021 showed low Testosterone but he was off for a few months due to unit receptionist left the area. Labs 04/22/2019 showed total testosterone 380 ( goal 350-700) -Cholesterol profile at goal 01/2021 -LFT is normal 01/2021 -S/p chest reconstruction surgery 08/[address] Ehsan Tavares. -Pt desires phalloplasty and has intake in [place] for June 2021, he is aware of the [facility] resource on line. Chronic low back pain 12/17/2017 01/13/2023 Depression 03/08/2015 01/13/2023 Overview (03/03/2024): Now followed at [facility]. No suicidial or homacidial ideation. Assessment & Plan (03/03/2024 9:33 PM EST): Now followed at [facility]. No suicidial or homacidial ideation. Resolved Problems Problem Noted Date Diagnosed Date Resolved Date Left ankle sprain 11/16/2023 07/12/2024 Overview (11/16/2023): -11/16/23 XR/XR foot LT 2V IMPRESSION: No acute fracture or malalignment in the left ankle and foot. Physical exam 01/20/2023 03/03/2024 Overview (01/20/2023): -Normal growth and development. -Anticipatory guidance discussed. -Preventative care / harm reduction discussed. Assessment & Plan (01/20/2023 2:58 PM EDT): -Normal growth and development. -Anticipatory guidance discussed. -Preventative care / harm reduction discussed. Myopia of both eyes 05/15/2021 04/07/19 Gender dysphoria 05/15/2021 01/13/2023 01/13/2023 Encounters Date Type Department Care Team Description 01/31/2025 Telephone [facility] [address] [place] [address] Abiola Hassan MD 01/30/2025 3:00 PM EST Office Visit [facility] OPTOMETRY [address] [place] [address] Aaron, Hellen, OD Myopia of both eyes (Primary Dx); Posterior staphyloma, bilateral 01/30/2025 Travel 12/25/2024 Refill [facility] [address] [place] [address] Abiola Hassan MD Gender dysphoria in adult 11/07/2024 Telephone [facility] [address] [place] [address] Abiola Hassan MD December Recalls 11/07/2024 Travel from Last 3 Months Immunizations Immunization Administration Dates Next Due Hep B, adult 03/03/2024,07/02/2023,01/20/2023 Influenza injectable quadriv alent preservative free 01/20/2023,02/06/2022,05/15/2021,2018,05/31/2017 Influenza, seasonal, injecta ble, preservative free 03/03/2024 PPD Test 07/14/2016,03/11/2015 Pfizer Covid-19 Vaccine 12+ 03/03/2024, Tdap 12/19/2018,05/09/2015 Family History Medical History Relation Name Comments Cancer Neg Hx Diabetes Neg Hx Hypertension Neg Hx Social History Tobacco Use Types Packs/Day Years Used Date Smoking Tobacco: Never Smokeless Tobacco: Never Tobacco Cessation:Counseling Given: Not Answered Alcohol Answer Date Recorded How often do [...] Q2 Not on file 03/03/2024 Comments Unknown Intention Date Recorded No desire to become (finding) 0 07/12/2024 Sex and Gender Information Value Date Recorded Sex Assigned at Female 02/01/2023 11:12 AM EST Legal Sex Female 7:48 AM EDT Gender Identity Transgender Male 01/26/2022 10:3 4 AM EDT Sexual Orientation Something else 06/11/2022 10 :44 AM EDT Last Filed Vital Signs Vital Sign Reading Time Taken Comments Blood Pressure 138/89 07/12/2024 10:34 AM EDT Pulse 77 07/12/2024 10:34 AM EDT Temperature 36.4 C (97.5 F) 03/03/2024 10:04 AM EST Respiratory Rate 16 07/12/2024 10:34 AM EDT Oxygen Saturation 98% 03/03/2024 10:04 AM EST Inhaled Oxygen Concentration - - Weight 81.2 kg (179 lb) 07/12/2024 10:34 AM EDT Height 165.1 cm (5' 5 ) 07/12/2024 10:34 AM EDT Body Mass Index 29.79 07/12/2024 10:34 AM EDT Plan of Treatment Upcoming Encounters Date Type Department Care Team (Late st Contact Info) Description 02/05/2025 10:45 AM EST Office Visit [facility] [address] [place] [address] Abiola Hassan MD [address] [place] [address] 04/09/2025 11:30 AM EST Office Visit [facility] OPTOMETRY [address] [place] [address] AaronHellen misrha, OD [address] [place] [address] Health Maintenance Due Date Last Done Comments HPV Vaccines (1 - 3-dose series) 2004 Depression Monitoring 09/01/2024 03/03/2024, 024 Influenza Vaccine (#1) 2024 , 01/20/2023, 02/06/2022, Additional history exists Alcohol/Substance Use Screening 03/03/2025 03/03/2024 SDOH Screening 07/05/2025 07/05/2024 Disability Screening 07/12/2025 07/12/2024 Family Planning (PISQ) 07/12/2025 07/12/2024 Tobacco Screening 07/12/2025 07/12/2024 DTaP/Tdap/Td Vaccines (3 - Td or Tdap) 12/19/2028 12/19/2018, 05/09/2015 Lipid Panel 10/16/2029 10/16/2024, 12/28, 02/06/2022 Zoster Vaccines (1 of 2) 10/15/2039 RSV Patients and Patients Aged 60 years or older (1 - 1-dose 75+ series) 2064 Cervical Cancer Screening Discontinued HPV/Cotest Discontinued 02/28/2021, 02/28/2021 Pap Smear Discontinued 02/28/2021, 02/28/2021 HIV Screening Completed 01/20/2023, 02/06/2022 Hepatitis C Screening Completed 01/20/2023, 022 COVID-19 Vaccine Completed 03/03/2024, , 08/19/2020, Additional history exists Hepatitis B Vaccines Completed 03/03/2024, 07/02/2023, 01/20/2023 HIB Vaccines Aged Out No longer eligi [...] patient's age to complete this topic Meningococcal Vaccine Aged Out No shelly bandar eligible based on patient's age to complete this topic Pneumococcal Vaccine: Pediatrics (0 to 5 Years) and At-Risk Patients (6 to 49) Years Aged Out No longer eligible based on patient's age to complete this topic RSV under 20 months Aged Out No longe r eligible based on patient's age to complete this topic Rotavirus Vaccines Aged Out No longer eligible based on patient's age to complete this topic Procedures Procedure Name Priority Date/Time Associated Diagnosis Comments LIPID PANEL, STANDARD Routine 10/16/2024 12:27 PM EDT Gender dysphoria in adult HEPATITIS C AB W/REFL TO HCV RNA, QN, PCR Routine 01/20/2023 4:08 PM EDT Routine screening for STI (sexually transmitted infection) HIV ANTIBODY/ANTIGEN ([place] DPH) Routine 01/20/2023 4:08 PM EDT HPV HIGH RISK PCR Routine 02/28/2021 12: 00 AM EST PAP SMEAR Routine 02/28/2021 12:00 AM EST from Last 3 Months or Most Recently Relevant to Health Maintenance Results * Lipid Panel, Standard (10/16/2024 12:27 PM EDT) Triglycerides 81 <150 mg/dL [facility] Comment:Desirable Triglyceri de: less than 150 mg/dLBorderline High Triglyceride 150-199 mg/dLHigh Triglyceride: 200-499 mg/dLVery High Triglyceride: greater than or equal to 5OO mg/dL Cholesterol 151 <200 mg/dL [facility] Comment:Desirable Cholestero l: less than 200 mg/dLBorderline High Cholesterol: 200-239 mg/dLHigh Cholesterol: greater than 239 mg/dL LDL Cholesterol Calculated 74 <100 mg/dL [facility] Comment:Desirable LDL: less than 100 mg/dLNear Optimal/Above Optimal LDL: 110- 129 mg/dLBorderline High LDL: 130-159 mg/dLHigh LDL: 160-189 mg/dLVery High LDL: greater than or equal to 190 mg/dL HDL Cholesterol 61 >40 mg/dL [facility] Comment:Desirable HDL: great er than 40 mg/dL Note: This HDL assay may give artificially low results in patients with liver disease. Blood Venous blood specimen / Unknown 10/16/2024 12:27 PM EDT 10/16/2024 12:57 PM EDT Abiola Hassan MD LAB BLOOD ORDERABLES Final Result [facility] [address] [place] [phone] * HIV Ab/Ag (TIFFANY ROCHA) (01/20/2023 4:08 PM EDT) HIV AB/AG Nonreactive Nonreactive [facility] Comment:HIV-1 p24 Ag and/or HIV-1/HIV-2 Ab not detected.A test result that is nonreactive does not exclude thepossibility of exposure to or infection with HIV-1 and/orHIV-2. Nonreactive results in this assay for individualswith prior exposure to HIV-1 and/or HIV-2 may be due toantigen and antibody levels that are below the limit ofdetection of this assay.The [employer] HIV Ag/Ab Combo assay result andsupplemental assay results should be interpreted inconjunction with the patient's clinical presentation,history and other laboratory results. If the results areinconsistent with clinical evidence, additional testing issuggested to confirm the result. 01/20/2023 4:08 PM EDT 01/20/2023 5:19 PM EDT Abiola Hassan MD LAB BLOOD ORDERABLES Final Result Performing Organization Address [facility]/ZIP Co de Phone Number [facility] [address] [place] [phone] * Hepatitis C Antibody with Reflex to HCV, RNA, Quantitative, Real-Time PCR (01/20/2023 4:08 PM EDT) Hepatitis C Antibody Nonreactive Nonreactive [facility] Comment:Antibodies to HCV no t detected; does not exclude early acuteHCV infection. Blood Venous blood specimen / Unknown 01/20/2023 4:08 PM EDT 01/20/2023 5:19 PM EDT Abiola Hassan MD LAB BLOOD ORDERABLES Final Result Performing Organization Address City/[facility]/ZIP Co de Phone Number [facility] [address] [place] [phone] * HPV High Risk PCR (02/28/2021 12:00 AM EST) Swab Abiola Hassan MD LAB MICROBIOLOGY - GENERAL ORDERABLES Final Result Performing Organization Address [facility] Co de Phone Number [facility] [address] [place] [phone] * Pap Smear (02/28/2021 12:00 AM EST) Swab us Abiola Hassan MD LAB CYTOLOGY ORDERABLES Fi nal Result [facility] [address] [place] [phone] from Last 3 Months or Most Recently Relevant to Health Maintenance Insurance [facility] C3 HSN FULL Advance Directives Documents on File Type Date Recorded Patient Search Engine Optimization Specialist Expl anation Advance Directives and Living Will 03/03/2024 Health Care Proxy 03/03/24 Care Teams Stretcher Helper Relationship Specialty Start Date End Date Abiola Hassan MD [address] [place] [address] PCP - General Family Medicine 02/28/18 Hellen Walker OD [address] [place] [address] Optometry 05/29/24 Keith Kirkpatrick MD, MS Plastic and Reconstructive Surgery [address] [place] [address] 05/29/24
--- OUTSIDE RECORDS SUMMARY | 2025-02-02 09:11 | XMS_ITS | Encounter Summary ---
Author Organization [facility] Address [address] [place] [phone] Phone Care Team Providers Care Internal Corrosion Specialist Name Role Phone Mo, Abiola Garcia MD Primary Care Provi danya Encounter Details Date Type Department Care Team (Late st Contact Info) Description 06/23/[address] [facility] Periop [address] [place] [address] Social History Tobacco Use Types Packs/Day Years [...] Description 02/06/2025 1:00 PM EST Office Visit [facility] Plastic Surgery [address] [address] Keith Kirkpatrick MD, MS [address] [place] [address] [email or web address] 02/12/2025 Procedure Pass [facility] Periop [address] [place] [phone] 02/12/2025 7:30 AM EST Hospital Encounter [facility] Periop [address] [place] [address] Keith Kirkpatrick MD, MS [address] [place] [address] [email or web address] 02/12/2025 7:30 AM EST - 02/12/2025 3:32 PM EST Surgery [facility] Periop [address] [place] [address] Keith Kirkpatrick MD, MS [address] [place] [address] [email or web address] Perineal phalloplasty, stage 2 with Urethral Lengthening, Perineal Closure, Clitoral burying, Scrotoplasty, and Glansplasty 02/20/2025 12:30 PM EST Office Visit [facility] Plastic Surgery [address] [place] [phone] Darian Kessler PA-C [address] [place] [address] [email or web address] 03/06/2025 3:00 PM EST Office Visit [facility] Plastic Surgery [address] [place] [phone] Keith Kirkpatrick MD, MS [address] [place] [address] [email or web address] 03/16/2025 11:00 AM EST Telemedicine [facility] Plastic Surgery [address] [place] [address] Darian Kessler PA-C [address] [place] [phone] [email or web address] 03/23/2025 2:30 PM EST Office Visit [facility] Plastic Surgery [address] [place] [phone] Darian Kessler PA-C [address] [place] [phone] [email or web address] 07/10/2025 1:15 PM EDT Office Visit [facility] Plastic Surgery [address] [place] [phone] Keith Kirkpatrick MD, MS [address] [place] [address] [email or web address] Scheduled Procedures Name Priority Associated Diagnoses Date/Ti [...] as of this encounter Care Teams Internal Corrosion Specialist Relationship Specialty Start Date End Date Abiola Hassan MD [address] [place] [address] PCP - General Family Medicine 12/24/20 documented as of this encounter Additional Source Comments The information contained in this document represents components of the legal health record. It is not the complete legal health record.[facility]
--- OUTSIDE RECORDS SUMMARY | 2025-02-02 09:11 | XMS_ITS | Clinical Summary ---
Author Organization [employer] [facility] Address [address] [place] [address] Phone Care Team Providers Care Sponge Hooker Name Role Phone Elba, Abiola Garcia MD Primary Care Provi danya Allergies Active Allergy Reactions Criticality Noted Date Comments Penicillin 03/08/2015 Medications oxyCODONE 5 MG immediate release tablet Take 1-2 tablets (5-10 mg total) by mouth every 6 (six) hours as needed for pain (specific location in comments). Partial fill ok 8 tablet 05/25/2024 Active senna (SENOKOT) 8.6 mg tablet Take 1 tablet by mouth 2 (two) times a day. 30 tablet 05/25/2024 Active docusate sodium (COLACE) 100 MG capsule Take 1 capsule (100 mg total) by mouth 2 (two) times a day. 30 capsule 05/25/2024 Active cefadroxil (DURICEF) 500 MG capsule Take 1 capsule (500 mg total) by mouth 2 (two) times a day. 14 capsule 05/25/2024 Active acetaminophen (TYLENOL) 325 mg tablet Take 2 tablets (650 mg total) by mouth every 4 (four) hours as needed for pain (specific location in comments). 90 tablet 05/25/2024 Active Active Problems Problem Noted Date Diagnosed Date Hypertrophic scar 07/12/2024 Gender incongruence 12/09/2023 Gender dysphoria in adult 06/13/2018 Family History Relation Status Comments Father Other Mother Alive Social History Tobacco Use Types [...] Something else 11/16/2023 2: 31 PM EDT Last Filed Vital Signs Vital Sign Reading Time Taken Comments Blood Pressure 110/78 05/25/2024 7:30 PM EST Pulse 95 05/25/2024 6:00 PM EST Temperature 37 C (98.6 F) 05/25/2024 7:30 PM EST Respiratory Rate 17 05/25/2024 6:00 PM EST Oxygen Saturation 98% 05/25/2024 7:30 PM EST Inhaled Oxygen Concentration - - Weight 67.1 kg (148 lb) 05/23/2024 8:38 AM EST Height 165.1 cm (5' 5 ) 05/23/2024 8:38 AM EST Body Mass Index 24.63 05/23/2024 8:38 AM EST Plan of Treatment Upcoming Encounters Date Type Department Care Team (Latest Contact Info) Description 02/06/2025 1:00 PM EST Office Visit [facility] Plastic Surgery [address] [place] [address] Keith Kirkpatrick MD, MS [address] [place] [address] [email or web address] 02/12/2025 Procedure Pass [facility] Periop [address] [place] [address] 02/12/2025 7:30 AM EST Hospital Encounter [facility] Periop [address] [place] [address] Kieth Kirkpatrick MD, MS [address] [place] [address] [email or web address] 02/12/2025 7:30 AM EST - 02/12/2025 3:32 PM EST Surgery [facility] Periop [address] [place] [address] Keith Kirkpatrick MD, MS [address] [place] [address] [email or web address] ERAS Perineal phalloplasty, stage 2 with Urethral Lengthening, Perineal Closure, Clitoral burying, Scrotoplasty, and Glansplasty 02/20/2025 12:30 PM EST Office Visit [facility] Plastic Surgery [address] [place] [address] Darian Kessler PA-C [address] [place] [address] [email or web address] 03/06/2025 3:00 PM EST Office Visit [facility] Plastic Surgery [address] [place] [address] Keith Kirkpatrick MD, MS [address] [place] [address] [email or web address] 03/16/2025 11:00 AM EST Telemedicine [facility] Plastic Surgery [address] [place] [address] Darian Kessler PA-C [address] [place] [address] [email or web address] 03/23/2025 2:30 PM EST Office Visit [facility] Plastic Surgery [address] [place] [address] 216[address] Darian Kessler PA-C [address] [place] [address] [email or web address] 07/10/2025 1:15 PM EDT Office Visit [facility] Plastic Surgery [address] [place] [address] Keith Kirkpatrick MD, MS [address] [place] [address] [email or web address] Scheduled Procedures Name Priority Associated Diagnoses Date/Ti me PHALLOPLASTY PERINEAL Gender dysphoria in adult 02/12/2025 7:30 AM EST VAGINECTOMY FOR GENDER AFFIRMATION Gender dysphoria in adult 02/12/2025 7:30 AM EST Health Maintenance Due Date Last Done Comments HEPATITIS C SCREENING 10/15/2007 HIV ONE-TIME SCREENING (18-65 YEARS) 10/15/2007 PNEUMOCOCCAL VACCINES (0-49 years) (1 of 2 - PCV) 2008 DEPRESSION SCREENING 02/03/2024 02/02/2023 PAP SMEAR 02/29/2024 02/28/2021 INFLUENZA VACCINE (#1) 2024 , 01/20/2023, 02/06/2022, Additional history exists COVID-19 VACCINE ( season) 2024 03/03/2024, 03/27/2021, 08/19/2020, Additional history exists Adult Td,Tdap Booster 12/19/2028 12/19/2018, 016 SMOKING STATUS SCREENING (Once After 26 Yrs) Completed 05/25/2024 HEPATITIS A VACCINES Aged Out No long er eligible based on patient's age to complete this topic HIB VACCINES Aged Out No longer eligi ble based on patient's age to complete this topic IPV VACCINES Aged Out No longer eligi ble based on patient's age to complete this topic MENINGOCOCCAL VACCINES (ACWY) Aged Out No longer eligible based on patient's age to complete this topic MENINGOCOCCAL VACCINES (B) Aged Out N o longer eligible based on patient's age to complete this topic Medical Devices Implanted Type Area Manufacturing Electrician Device Identifier Shelf Expiration Date Model / Serial / Lot Deputy Controller Vascular 1.5mm Device Closure Micro Anastomotic Bx/6ea - [id number] Implanted:Qty: 1 on 12/09/2023 by Keith Kirkpatrick MD, [place] at [facility] STANDARD N/A: [employer] [facility] 08/05/2025 [id number] / / [id number] Deputy Controller Vascular 1.5mm Device Closure Micro Anastomotic Bx/6ea - [id number] Implanted:Qty: 1 on 12/09/2023 by Keith Kirkpatrick MD, MS at [facility] STANDARD N/A: [employer] 08/05/2025 [id number] / / [id number] Doppler Flowcoupler 2.5mm Device Closure Vascular Deputy Controller Anastamosis - [id number] Implanted:Qty: 1 on 12/09/2023 by Keith Kirkpatrick MD, MS at [facility] N/A: [employer] 03/30/2028 [id number] / / [id number] Insurance C3 ACO C3 ACO C3 ACO C3 ACO C3 ACO C3 ACO C3 ACO C3 ACO C3 ACO C3 ACO Advance Directives For more information, please contact: [phone] (9AM - 5PM Leta/[facility], Wednesday-Wednesday) Documents on File Type Date Recorded Patient Systems Technician Expl anation Healthcare Proxy 06/24/2023 5:02 PM * Full Code (Latest Code Status on File) Date Activated Date Inactivated Comments 12/09/2023 9:32 PM Question Answer Comments Code Status Confirmed With: Patient * Full Code (Presumed) Date Activated Date Inactivated Comments 09/14/2018 8:52 AM 09/15/2018 4:07 AM Care Teams Sponge Hooker Relationship Specialty Start Date End Date Elba, Abiola Garcia MD [address] [place] [address] PCP - General Family Medicine 12/24/20 Additional Source Comments The information contained in this document represents components of the legal health record. It is not the complete legal health record.[facility]
--- OUTSIDE RECORDS SUMMARY | 2025-02-02 09:11 | XMS_ITS | Encounter Summary ---
Author Organization [facility] Address [address] [place] [address] Phone Care Team Providers Care Track Leader Name Role Phone Mo, Abiola Garcia MD Primary Care Provi [facility] Encounter Details Date Type Department Care Team (Late st Contact Info) Description 07/13/2024 Procedure Pass [facility] Periop [address] [place] [address] Social History Tobacco Use Types Packs/Day Years [...] Description 02/06/2025 1:00 PM EST Office Visit [facility] Plastic Surgery [address] [address] Keith Kirkpatrick MD, MS [address] [place] [address] [email or web address] 02/12/2025 Procedure Pass [facility] Periop [address] [place] [address] 02/12/2025 7:30 AM EST Hospital Encounter [facility] Periop [address] [place] [address] Keith Kirkpatrick MD, MS [address] [place] [address] [email or web address] 02/12/2025 7:30 AM EST - 02/12/2025 3:32 PM EST Surgery [facility] Periop [address] [place] [address] Keith Kirkpatrick MD, MS [address] [place] [address] [email or web address] Perineal phalloplasty, stage 2 with Urethral Lengthening, Perineal Closure, Clitoral burying, Scrotoplasty, and Glansplasty 02/20/2025 12:30 PM EST Office Visit [facility] Plastic Surgery [address] [place] [address] Darian Kessler PA-C [address] [place] [address] [email or web address] 03/06/2025 3:00 PM EST Office Visit [facility] Plastic Surgery [address] [place] [address] Keith Kirkpatrick MD, MS [address] [place] [address] [email or web address] 03/16/2025 11:00 AM EST Telemedicine [facility] Plastic Surgery [address] [place] [address] Darian Kessler PA-C [address] [place] [address] [email or web address] 03/23/2025 2:30 PM EST Office Visit [facility] Plastic Surgery [address] [place] [address] 06[address] Darian Kessler PA-C [address] [place] [address] [email or web address] 07/10/2025 1:15 PM EDT Office Visit [facility] Plastic Surgery [address] [place] [address] Keith Kirkpatrick MD, MS [address] [place] [address] [email or web address] Scheduled Procedures Name Priority Associated Diagnoses [...] documented as of this encounter Care Teams Track Leader Relationship Specialty Start Date End Date Abiola Hassan MD [address] [place] [address] PCP - General Family Medicine 12/24/20 documented as of this encounter Additional Source Comments The information contained in this document represents components of the legal health record. It is not the complete legal health record.[facility]
--- OUTSIDE RECORDS SUMMARY | 2025-02-02 09:11 | XMS_ITS | Clinical Summary ---
Author Organization [facility] ity Address [address] [place] [address] Care Team Providers Care Make Up Operator Helper Name Role Phone Abiola Hassan MD Primary Care Provider +1- [phone] Surgical History Surgery Date Site/Laterality Comments OTHER [...] of 3 - 19+ 3-dose series) 2008 HPV Vaccines (1 - 3-dose SCD M series) 2016 Cholesterol Screening (Lipid Panel) 02/25/2022 HIV Screening 02/25/2022 Hepatitis C Screening 02/25/2022 Social Influencers of Health Screening 02/25/2022 Depression Screening 03/29/2024 COVID-19 Vaccine ( - 2023-2 5 season) 2024 Influenza Vaccine (#1) 2024 RSV Immunization Adult Patie nts (1 - 1-dose 75+ series) 2064 HIB Vaccines Aged Out No longer eligi [...] age to complete this topic Care Teams Make Up Operator Helper Relationship Specialty Start Date End Date Abiola Hassan MD [address] [place] [phone] PCP - General Internal Medicine 07/22/18
--- OUTSIDE RECORDS SUMMARY | 2025-02-02 09:11 | XMS_ITS | Encounter Summary ---
Author Organization [facility] Address [address] [place] [address] Phone Care Team Providers Care Infrastructure Project Manager Name Role Phone Ralph Morrison MD Primary Care Provide r Abiola Hassan MD Primary Care Provi danya Encounter Details Date Type Department Care Team (Late st Contact Info) Description 09/14/2018 Procedure Pass OR Admitting Dept - Virtual Department [address] [place] [address] Social History Tobacco Use Types Packs/Day Years Used Date Smoking Tobacco: Never Smokeless Tobacco: Never Alcohol Use Standard Drinks/Week Comments Yes 0 (1 standard drink = 0.6 oz pur e alcohol) 1-2/week Comments No Sex and Gender Information Value [...] Description 02/06/2025 1:00 PM EST Office Visit [facility] Plastic Surgery [address] [place] [address] Keith Kirkpatrick MD, MS [address] [place] [address] [email or web address] 02/12/2025 Procedure Pass [facility] Periop [address] [place] [address] 02/12/2025 7:30 AM EST Hospital Encounter [facility] Periop [address] [place] [address] Keith Kirkpatrick MD, MS [address] [place] [address] [email or web address] 02/12/2025 7:30 AM EST - 02/12/2025 3:32 PM EST Surgery [facility] Periop [address] [place] [address] Keith Kirkpatrick MD, MS [address] [place] [address] [email or web address] Perineal phalloplasty, stage 2 with Urethral Lengthening, Perineal Closure, Clitoral burying, Scrotoplasty, and Glansplasty 02/20/2025 12:30 PM EST Office Visit [facility] Plastic Surgery [address] [place] [address] Darian Kessler PA-C [address] [place] [address] [email or web address] 03/06/2025 3:00 PM EST Office Visit [facility] Plastic Surgery [address] [place] [address] Keith Kirkpatrick MD, MS [address] [place] [address] [email or web address] 03/16/2025 11:00 AM EST Telemedicine [facility] Plastic Surgery [address] [place] [address] Darian Kessler PA-C [address] [place] [address] [email or web address] 03/23/2025 2:30 PM EST Office Visit [facility] Plastic Surgery [address] [place] [address] 77[address] Darian Kessler PA-C [address] [place] [address] [email or web address] 07/10/2025 1:15 PM EDT Office Visit [facility] Plastic Surgery [address] [place] [address] 8[address] Keith Kirkpatrick MD, MS [address] [place] [address] [email or web address] Scheduled Procedures Name Priority Associated Diagnoses Date/Ti me PHALLOPLASTY PERINEAL Gender dysphoria in adult 02/12/2025 7:30 AM EST VAGINECTOMY FOR GENDER AFFIRMATION Gender dysphoria in adult 02/12/2025 7:30 AM EST documented as of this encounter Visit Diagnoses Not on filedocumented in this encounter Care Teams Infrastructure Project Manager Relationship Specialty Start Date End Date Ralph Morrison MD [address] [facility] [place] [address] PCP - General Internal Medicine 02/28/18 12/23/20 Abiola Hassan MD [address] [place] [address] PCP - General Family Medicine 12/24/20 documented as of this encounter Additional Source Comments The information contained in this document represents components of the legal health record. It is not the complete legal health record.[facility]
--- OUTSIDE RECORDS SUMMARY | 2025-02-02 09:11 | XMS_ITS | Encounter Summary ---
Author Organization [employer] Address [address] [facility] 7t [place] [address] Care Team Providers Care Coding And Reimbursement Specialist Name Role Phone Abiola Hassan MD Primary Care Provider [phone]- [phone] Hellen Walker OD Unavailable Encounter Details Date Type Department Care Team (Late st Contact Info) Description 05/29/2024 Orders Only [facility] MEDICINE [address] [place], [place] [phone] Abiola Hassan MD [address] [place], [place] [phone] Social History Tobacco Use Types Packs/Day Years [...] housing situation today? I have magaly [place] 03/03/[address] you li ve. Do you have problems with any of the following? Lead Robinson or Pipes;Inadequate heat;No or not working smoke detectors;Water leaks 03/03/2024 Food Insecurity Answer Date Recorded Within the past 12 months, y ou worried that your food would run out before you got money to buy more: Often true 03/03/2024 Within the past 12 months,th e food you bought just didn't last and you didn't have enough money to get more: Often true 08/2023 Transportation Answer Date Recorded In the past 12 months, has l ack of transportation kept you from medical appts, meetings, work or from getting things needed for daily living? No 03/03/2024 Utilities Answer Date Recorded In the past 12 months, has t he electric, gas, oil or water company threatened to shut off services in your home? Yes 03/03/2024 Depression Answer Date Recorded Patient Health Questionnaire-2 [...] Description 02/05/2025 10:45 AM EST Office Visit [facility] MEDICINE [address] [place] [address] Abiola Hassan MD [address] [place] [address] 04/09/2025 11:30 AM EST Office Visit [facility] OPTOMETRY [address] [place] [address] Hellen Walker OD [address] [place] [address] documented as of this encounter Visit Diagnoses Not on filedocumented in this encounter Additional Health Concerns Assessment Noted Time PHQ-9 Depression Total Score: 20 024 10:36 AM EST documented as of this encounter Care Teams Coding And Reimbursement Specialist Relationship Specialty Start Date End Date Abiola Hassan MD [address] [place] [address] PCP - General Family Medicine 02/28/18 Hellen Walker OD [address] [place] [address] Optometry 05/29/24 Keith Kirkpatrick MD, MS Plastic and Reconstructive Surgery [address] [place] [address] 05/29/24 documented as of this encounter
--- OUTSIDE RECORDS SUMMARY | 2025-02-02 09:11 | XMS_ITS | Encounter Summary ---
Author Organization [employer] Address [address] [facility] 7t [place] [address] Care Team Providers Care Disability Specialist Name Role Phone Abiola Hassan MD Primary Care Provider +1- [phone] Kosta Walkern OD Unavailable [phone] Reason for Visit * Reason Onset Date Comments Med Refill 03/31/2024 Encounter Details Date Type Department Care Team (Late st Contact Info) Description 03/31/2024 Refill [facility] MEDICINE [address] [place], [place] [phone] Abiola Hassan MD [address] [place] [address] Gender dysphoria in adult Social History Tobacco [...] your housing situation today? I have magaly monica 03/03/[address] you li ve. Do you have problems with any of the following? Lead Platinum or Pipes;Inadequate heat;No or not working smoke [...] Description 02/05/2025 10:45 AM EST Office Visit [facility] MEDICINE [address] [place] [address] Abiola Hassan MD [address] [place] [address] 04/09/2025 11:30 AM EST Office Visit [facility] OPTOMETRY [address] [place] [address] Aaron, Hellen, OD [address] [place] [address] documented as of this encounter Visit Diagnoses Diagnosis Gender dysphoria in adult Gender dysphoria in adult- Primary documented in this encounter Additional Health Concerns Assessment Noted Time PHQ-9 Depression Total Score: 20 024 10:36 AM EST documented as of this encounter Care Teams Disability Specialist Relationship Specialty Start Date End Date Abiola Hassan MD [address] [place] [address] PCP - General Family Medicine 02/28/18 Hellen Walker OD [address] [place] [address] Optometry 05/29/24 Keith Kirkpatrick MD, MS Plastic and Reconstructive Surgery [address] [place] [address] 05/29/24 documented as of this encounter
--- OUTSIDE RECORDS SUMMARY | 2025-02-02 09:11 | XMS_ITS | Encounter Summary ---
Author Organization [employer] Address [address] [place] [address] 7t [place] [address] Care Team Providers Care Zigzag Topstitcher Name Role Phone Abiola Hassan MD Primary Care Provider [phone]- [phone] Hellen Walker OD Unavailable Encounter Details Date Type Department Care Team (Late Contact Info) Description 04/13/2022 Abstract [facility] MEDICINE [address] [place] [address] [phone] Abiola Hassan MD [address] [place] [address] [phone] Social History Tobacco Use Types Packs/Day Years Used Date Smoking Tobacco: Never Smokeless Tobacco: Never Comments Unknown Sex and Gender Information Value Date Recorded Sex Assigned at Female 02/01/2023 11:12 AM EST Legal Sex Female 7:48 AM EDT Gender Identity Transgender Male 01/26/2022 10:3 4 AM EDT Sexual Orientation Something else 06/11/2022 10 :44 AM EDT COVID-19 Exposure Response Date Recorded In the last 10 days, have yo u been in contact with someone who was confirmed or suspected to have Coronavirus/COVID-19? No / Unsure 04/03/2022 9:21 AM EST documented as of this encounter Plan of Treatment Upcoming Encounters Date Type Department Care Team (Late st Contact Info) Description 02/05/2025 10:45 AM EST Office Visit [facility] MEDICINE [address] [place] [address] [phone] Abiola Hassan MD [address] [place] [address] [phone] 04/09/2025 11:30 AM EST Office Visit [facility] OPTOMETRY [address] [place] [address] Hellen Walker, OD [address] [place] [address] documented as of this encounter Procedures Procedure Name Priority Date/Time Associated Diagnosis Comments HPV HIGH RISK PCR Routine 02/28/2021 12:00 AM EST PAP SMEAR Routine 02/28/2021 12:00 AM EST documented in this encounter Results * HPV High Risk PCR (02/28/2021 12:00 AM EST) Swab Abiola Hassan MD LAB MICROBIOLOGY - GENERAL ORDERABLES Final Result Performing Organization Address [facility] Co de Phone Number [facility] [address] [place] [phone] * Pap Smear (02/28/2021 12:00 AM EST) Swab Abiola Hassan MD LAB CYTOLOGY ORDERABLES Fi nal Result Performing Organization Address [facility]/ZIP Co de Phone Number [facility] [address] [place] [address] [phone] documented in this encounter Visit Diagnoses Not on filedocumented in this encounter Care Teams Zigzag Topstitcher Relationship Specialty Start Date End Date Abiola Hassan MD [address] [place] [address] PCP - General Family Medicine 02/28/18 Hellen Walker, OD [address] [place] [address] Optometry 05/29/24 Keith Kirkpatrick MD, MS Plastic and Reconstructive Surgery [address] [place] [address] 05/29/24 documented as of this encounter
[2025-02-02 11:42] LABS: Hematocrit 49.2 % (42.0-52.0); Hemoglobin 15.2 g/dl (14.0-18.0); Mean Corpuscular HGB Conc 30.9 g/dl (31.0-36.0); Mean Corpuscular Hemoglobin 24.8 pg (27.0-33.0); Mean Corpuscular Volume 80.1 fL (80.0-98.0); NRBC Abs Auto 0.000 X10*3/uL (0.0-0.012); NRBC Pct Auto 0.0 /100WBC (0.0-0.2); Platelet Count 227 X10*3/uL (160-400); Red Blood Count 6.14 X10*6/uL (4.60-5.80); White Blood Count 7.2 X10*3/uL (4.8-10.8)
[2025-02-02 12:26] LABS: Alanine Aminotransferase 18 U/L (0-40); Albumin Level 4.8 g/dL (3.5-5.0); Alkaline Phosphatase 102 U/L (39-117); Aspartate Amino Transferase 27 U/L (5-37); Total Protein 7.5 g/dL (6.5-8.0)
== END 2025-02-02 08:38 | disposition home or self-care (01) ==
LOC: HO.HHCL 08:37
PROVIDERS: PCP Family Medicine; Visit Provider Family Medicine
DX: F64.0 Transsexualism (principal)
CPT/HCPCS: 36415; 80076; 84403; 85027